=== PATIENT | male | born 1950 | race Caucasian/White ===

== ENCOUNTER 2019-06-15 11:00 | Day surgery (SDC) | payer OTHER ==
[~2019-06-15 11:00] MED LIST: PROPOFOL INJ 200 MG/20 ML VIAL IV ONE
[2019-06-15] MEDS ORDERED: PROPOFOL INJ 200 MG/20 ML VIAL IV ONE (12:03)
--- NOTE | 2019-06-15 12:56 | Operative Report ---
Operative Report DATE OF SURGERY: 06/15/19 Operative Report: The risk, benefits and alternatives of the procedure including the risk of bleeding, perforation requiring surgery have been explained to the patient in detail and informed consent has been obtained. Patient is placed in a left, lateral decubital position. Timeout was called. Propofol medication is administered. Rectal examination is done which did not reveal any masses, tears or fissures. An Olympus videoscope was introduced into the patient's rectum. The scope was then carefully advanced all the way to the cecum. The cecum was identified by the usual anatomical landmarks including the ileocecal valve as well as the appendiceal office. Photodocumentation is obtained. Scope was then sequentially pulled back via the various segments of the colon including the ascending colon, hepatic flexure, transverse colon, splenic flexure, descending colon finding to the rectosigmoid portions of the colon. Retroflexion maneuvers performed. The risks benefits and alternatives of the procedure explained to the patient in detail and informed consent is obtained.A GIF Olympus video scope was inserted into the patient's mouth and hypopharynx, the esophagus is identified intubated and insufflated ,the scope was then advanced through the esophagus stomach and duodenum, retroflexion maneuver is done, the esophagus stomach and first and second portions of the duodenum examined PREOPERATIVE DIAGNOSIS: GI bleeding rule out source POSTOPERATIVE DIAGNOSIS: Mild right side colon inflammation status post biopsy. Internal hemorrhoids. Esophageal ulcer not actively bleeding. 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 Hiatal hernia. Gastric pouch inflammation status post biopsy. And anastomotic ulcer OPERATION: Colonoscopy with biopsy. EGD with biopsy SURGEON: ADAM BREWSTER ANESTHESIA: LMAC TISSUE REMOVED OR ALTERED: As noted above. COMPLICATIONS: None. ESTIMATED BLOOD LOSS: None. INTRAOPERATIVE FINDINGS: As noted above. PROCEDURE: Patient tolerated the procedure well. No immediate postprocedure complications are noted. Patient is discharged in good condition. Discharge date 06/15/2019. Discharge diet: Regular. Discharge activity: Regular. 2 to 3-week follow-up to discuss findings. Patient is instructed to call the office or proceed to the emergency room should there be any further problems or questions. Wait on the pathology.
[2019-06-15 13:02] VITALS: BP 145/66
== END 2019-06-15 13:00 | disposition home or self-care (01) ==
LOC: END 11:00
PROVIDERS: ATTEND Internal Medicine Gastroenterology
DX: D50.9 Iron deficiency anemia, unspecified (principal); K52.9 Noninfective gastroenteritis and colitis, unspecified; K64.8 Other hemorrhoids; K44.9 Diaphragmatic hernia without obstruction or gangrene; K29.50 Unspecified chronic gastritis without bleeding; K22.10 Ulcer of esophagus without bleeding; K28.9 Gastrojejunal ulcer, unspecified as acute or chronic, without hemorrhage or perforation; Z86.010 Personal history of colon polyps; Z87.891 Personal history of nicotine dependence
CPT/HCPCS: 43239; 45380; 82962; 88342 ×2; 88305 ×2; J2704; 813

== ENCOUNTER 2019-08-06 08:07 | Day surgery (SDC) | payer OTHER ==
[2019-08-06 10:39] VITALS: BP 144/71
--- NOTE | 2019-08-06 12:09 | Operative Report ---
Operative Report DATE OF SURGERY: 08/06/19 Operative Report: The risks benefits and alternatives of the procedure explained to the patient in detail and informed consent is obtained.A GIF Olympus video scope was inserted into the patient's mouth and hypopharynx ,the esophagus is identified intubated and insufflated, the scope was then advanced through the esophagus stomach and duodenum ,retroflexion maneuver is done the esophagus stomach and first and second portions of the duodenum examined PREOPERATIVE DIAGNOSIS: Corrales's esophagus POSTOPERATIVE DIAGNOSIS: Corrales's esophagus status post radiofrequency ablation OPERATION: EGD with radiofrequency ablation SURGEON: ADAM BREWSTER ANESTHESIA: LMAC TISSUE REMOVED OR ALTERED: None. COMPLICATIONS: None. ESTIMATED BLOOD LOSS: As noted above. INTRAOPERATIVE FINDINGS: As noted above. PROCEDURE: Patient tolerated the procedure well. No immediate postprocedure complications are noted. Patient is discharged in good condition. Discharge date 08/06/2019. Discharge diet: Regular. Discharge activity: Regular. 2 to 3-week follow-up to discuss findings. Patient is instructed call the office or proceed to the emergency room should there be any further problems or questions.
== END 2019-08-06 10:37 | disposition home or self-care (01) ==
LOC: END 08:07
PROVIDERS: ATTEND Internal Medicine Gastroenterology
DX: K22.719 Barrett's esophagus with dysplasia, unspecified (principal); Z87.891 Personal history of nicotine dependence; Z88.5 Allergy status to narcotic agent; I10 Essential (primary) hypertension; E11.9 Type 2 diabetes mellitus without complications; E66.9 Obesity, unspecified; Z85.828 Personal history of other malignant neoplasm of skin
CPT/HCPCS: 43270; 82962; 00731; J2704; 731

== ENCOUNTER 2019-12-15 04:25 | Inpatient (IN) | payer OTHER, MEDICARE ==
--- NOTE | 2019-12-15 05:38 | RADIOLOGY REPORT (SQ) ---
EXAM DESCRIPTION: XR CHEST 1 VIEW COMPLETED DATE/TME: 12/15/2019 04:55 CLINICAL HISTORY: 69 years, Male, epigastric pain COMPARISON: None. NUMBER OF VIEWS: 1 TECHNIQUE: Portable chest LIMITATIONS: None. FINDINGS: Cardiomegaly. Osteopenia. Multiple old rib fractures bilaterally. Lungs are clear. No pneumothorax. Postsurgical change of the cervical spine IMPRESSION: No acute cardiopulmonary process copyright 2010 [employer]- All Rights Reserved
[2019-12-15] MEDS ORDERED: MORPHINE SULFATE 10 MG/ML INJ IV ONE (06:25)
[2019-12-15] MEDS ORDERED: ONDANSETRON HCL INJ/PF 4 MG/2 ML SDV IV ONE (06:25)
[2019-12-15 06:35] LABS: ABSOLUTE EOSINOPHILS # (AUTO) 0.2 10^3/uL (0.0-0.6); ABSOLUTE LYMPHOCYTES (AUTO) 1.3 10^3/uL (0.5-4.7); ABSOLUTE MONOCYTES (AUTO) 0.5 10^3/uL (0.1-1.4); TOTAL CELLS COUNTED % (AUTO) 100 %
[2019-12-15 06:43] LABS: APPEARANCE,URINE CLEAR; BILIRUBIN,URINE NEGATIVE (NEGATIVE); COLOR,URINE STRAW; GLUCOSE, URINE 50 mg/dL (NEGATIVE); KETONES,URINE NEGATIVE (NEGATIVE); LEUKOCYTE ESTERASE,URINE NEGATIVE (NEGATIVE); NITRITE,URINE NEGATIVE (NEGATIVE); PROTEIN,URINE NEGATIVE (NEGATIVE); URINE SPECIFIC GRAVITY 1.006; UROBILINOGEN,URINE NEGATIVE mg/dL (<2.0)
[2019-12-15 06:44] LABS: ABSOLUTE NEUT (AUTO) 2.1 10^3/uL (1.7-8.2); BASOPHILS % (AUTO) 1.1 % (0-2); EOSINOPHILS % (AUTO) 4.7 % (0-6); HEMATOCRIT 25.4 % (37.9-51.0); HEMOGLOBIN 8.2 g/dL (13.5-17.0); MEAN CORPUSCULAR HEMOGLOBIN 23.8 pg (27.0-33.4); MEAN CORPUSCULAR HGB CONC 32.1 g/dL (32.0-36.0); MEAN CORPUSCULAR VOLUME 74 fl (80-97); PLATELET COUNT 255 10^3/uL (150-450); RED BLOOD COUNT 3.44 10^6/uL (4.35-5.55); RED CELL DISTRIBUTION WIDTH 19.7 % (11.5-14.0); SEGMENTED NEUTROPHILS % (AUTO) 51.2 % (42-78); WHITE BLOOD COUNT 4.1 10^3/uL (4.0-10.5)
[2019-12-15 06:49] LABS: INTERNATIONAL RATION (INR) 0.94; PROTHROMBIN TIME 12.5 SEC (11.4-15.4)
[2019-12-15 06:55] LABS: ALBUMIN 4.3 g/dL (3.5-5.0); ALKALINE PHOSPHATASE 62 U/L (38-126); ANION GAP 7 (5-19); ASPARTATE AMINO TRANSFERASE 58 U/L (17-59); BILIRUBIN,TOTAL 0.4 mg/dL (0.2-1.3); BLOOD UREA NITROGEN 13 mg/dL (7-20); CALCIUM 9.1 mg/dL (8.4-10.2); CARBON DIOXIDE 25 mmol/L (22-30); CHLORIDE 103 mmol/L (98-107); GLUCOSE 177 mg/dL (75-110); POTASSIUM 4.4 mmol/L (3.6-5.0); TOTAL PROTEIN 7.8 g/dL (6.3-8.2)
--- NOTE | 2019-12-15 09:29 | RADIOLOGY REPORT (SQ) ---
EXAM DESCRIPTION: CT ABD/PELVIS WITH IV ORAL IMAGES COMPLETED DATE/TIME: 12/15/2019 9:14 am REASON FOR STUDY: hx bypass, upper abd pain COMPARISON: None. TECHNIQUE: CT scan of the abdomen and pelvis performed using helical scanning technique with dynamic intravenous contrast injection. No oral contrast. Images reviewed with lung, soft tissue, and bone windows. Reconstructed coronal and sagittal MPR images reviewed. Delayed images for evaluation of the urinary system also acquired. All images stored on PACS. All CT scanners at this facility use dose modulation, iterative reconstruction, and/or weight based d osing when appropriate to reduce radiation dose to as low as reasonably achievable (ALARA). [facility]: Dose Right [facility]: CareDose [facility]: Dose Right [facility]: Teradose 4D [facility]: App Press CONTRAST TYPE AND DOSE: contrast/concentration: Isovue 350.00 mmol/ml; Total Contrast Delivered: 100 .0 ml; Total Saline Delivered: 61.1 ml RENAL FUNCTION: BUN 13 creatinine 1.26. RADIATION DOSE: CT Rad equipment meets quality standard of care and radiation dose reduction techniq ues were employed. CTDIvol: 17.9 - 20.4 mGy. DLP: 2346 mGy-cm.. LIMITATIONS: None. FINDINGS: LOWER CHEST: No significant findings. No nodules or infiltrates. LIVER: Normal size. 2.7 cm circumscribed low-attenuation lesion in the left lobe (axial series 3 and 5, image 14). Small subcentimeter low-attenuation lesion in the right lobe (axial series 3 and 5, i mage 21) possibly a cyst. No dilated ducts. SPLEEN: Normal size. No focal lesions. PANCREAS: No masses. No significant calcifications. No adjacent inflammation or peripancreatic fluid collections. Pancreatic duct not dilated. GALLBLADDER: Small gallstones. No inflammatory changes to suggest cholecystitis. ADRENAL GLANDS: No significant masses or asymmetry. RIGHT KIDNEY AND URETER: No solid masses. No significant calcifications. No hydronephrosis or hyd roureter. LEFT KIDNEY AND URETER: No solid masses. No significant calcifications. No hydronephrosis or hydr oureter. AORTA AND VESSELS: No aneurysm. No dissection. Renal arteries, SMA, celiac without stenosis. RETROPERITONEUM: No retroperitoneal adenopathy, hemorrhage or masses. BOWEL AND PERITONEAL CAVITY: Previous gastric surgery. No masses or inflammatory changes. No free fl uid or peritoneal masses. APPENDIX: Surgically absent. PELVIS: No mass. No free fluid. Normal bladder. ABDOMINAL WALL: No masses. No hernias. BONES: No significant or acute findings. OTHER: No other significant finding. IMPRESSION: 1. SMALL GALLSTONES. 2. CIRCUMSCRIBED LOW-ATTENUATION LESION IN THE LEFT LOBE OF THE LIVER. IF THE PATIENT HAS HAD PRIOR IMAGING ELSEWHERE, THEN COMPARISON WOULD BE HELPFUL TO DETERMINE IF THIS IS A STABLE FINDING. OTHERW ISE, MAY NEED OUTPATIENT MRI OF THE LIVER. 3. PREVIOUS GASTRIC BYPASS. 4. NO OTHER SIGNIFICANT OR ACUTE FINDING IN THE ABDOMEN OR PELVIS ON CT SCAN WITH IV CONTRAST. TECHNICAL DOCUMENTATION: JOB ID: [id number] Quality ID # [id number]: Final reports with documentation of one or more dose reduction techniques (e.g., Au tomated exposure control, adjustment of the mA and/or kV according to patient size, use of iterative reconstruction technique) 2010 [employer]- All Rights Reserved Reading location - IP/workstation name: [email or web address]
--- NOTE | 2019-12-15 09:38 | EKG REPORT ---
SEVERITY:- OTHERWISE NORMAL ECG - SINUS RHYTHM LEFT AXIS DEVIATION : Confirmed by: Alesha Weston 15-Dec-2019 09:37:47
--- NOTE | 2019-12-15 10:13 | ER Document Report ---
ED Cardiac - General Chief Complaint: Epigastric Pain Stated Complaint: ABDOMINAL PAIN Time Seen by Provider: 12/15/19 06:11 Primary Care Provider: JASVIR VILLARREAL DO [Primary Care Provider] - Follow up as needed Mode of Arrival: Medic Information source: Patient TRAVEL OUTSIDE OF THE [place] IN LAST 30 DAYS: No - HPI Notes: Patient comes in this morning complaining of epigastric pain. He states that he ate some butter beans approximate 3 AM and then developed severe epigastric pain. He states it is improved by the time he arrived here in the emergency department but he is unsure what has made it better. This pain has been co nstant. It is not radiating. It has been sharp. He states it feels similar to when he is had problems with his bypass in the past. He did have gastric bypass surgery in 2006 with a history of perforation. He states he has had no type of cardiac evaluation since 2004. At that time he did have a normal stress test he states. He states he has chronic anemia and is followed by Dr. Friedman. He st ates currently Dr. Lopes is trying to arrange for a repeat colonoscopy. He states he also had to have a recent transfusion for his anemia. Patient denies shortness of breath, significant nausea and he also denies sweating. - Related Data Allergies/Adverse Reactions: codeine Adverse Reaction (Intermediate, Verified 08/04/19 13:20) Nausea Past Medical History - General Information source: Patient - Social History Smoking Status: Former Smoker Frequency of alcohol use: None Drug Abuse: None Family History: Reviewed & Not Pertinent Patient has homicidal ideation: No - Past Medical History Cardiac Medical History: Reports: Hx Hypertension Denies: Hx Coronary Artery Disease, Hx Heart Attack Pulmonary Medical History: Reports: Hx Pneumonia Denies: Hx Asthma, Hx Bronchitis, Hx COPD Neurological Medical History: Denies: Hx Cerebrovascular Accident, Hx Seizures Endocrine Medical History: Reports: Hx Diabetes Mellitus Type 2 GI Medical History: Reports: Hx Gastroesophageal Reflux Disease Musculoskeletal Medical History: Reports Hx Arthritis Past Surgical History: Reports: Hx Orthopedic Surgery - neck, back, right leg - Immunizations Hx Diphtheria, Pertussis, Tetanus Vaccination: Yes Hx Pneumococcal Vaccination: 05/27/18 Review of Systems - Review of Systems Constitutional: denies: Chills, Fever Cardiovascular: Chest pain. denies: Palpitations Respiratory: denies: Cough, Short of breath -: Yes All other systems reviewed and negative Physical Exam - Vital signs Vitals: Temp Pulse Resp BP Pulse Ox 98.5 F 88 16 166/81 H 97 12/15/19 04:32 12/15/19 04:32 12/15/19 04:32 12/15/19 04:32 12/15/19 04:32 Interpretation: Normal - General General appearance: Appears well, Alert - HEENT Head: Normocephalic, Atraumatic Eyes: Normal Pupils: PERRL - Respiratory Respiratory status: No respiratory distress Chest status: Nontender Breath sounds: Normal Chest palpation: Normal - Cardiovascular Rhythm: Regular Heart sounds: Normal auscultation Murmur: No - Abdominal Inspection: Normal Distension: Distended Bowel sounds: Normal Tenderness: Tender - Mild epigastric tenderness to palpation. Organomegaly: No organomegaly - Back Back: Normal, Nontender - Extremities General upper extremity: Normal inspection, Nontender, Normal color, Normal ROM, Normal temperature General lower extremity: Normal inspection, Nontender, Normal color, Normal ROM, Normal temperature, Normal weight bearing. No: Ernesto's sign - Neurological Neuro grossly intact: Yes Cognition: Normal Orientation: AAOx4 Susana Coma Scale Eye Opening: Spontaneous [place] Coma Scale Verbal: Oriented [place] Coma Scale Motor: Obeys Commands [place] Coma Scale Total: 15 Speech: Normal Motor strength normal: LUE, RUE, LLE, RLE Sensory: Normal - Psychological Associated symptoms: Normal affect, Normal mood - Skin Skin Temperature: Warm Skin Moisture: Dry Skin Color: Normal Course - Re-evaluation Re-evalutation: 12/15/19 10:10 Patient presents with epigastric pain that is lower chest upper abdominal in nature. It does not appear to be secondary to any GI pathology that I can ascertain at this time. Patient does have significant risk factors for cardiac disease and has no recent evaluation. It seems prudent to have patient further evaluated for coronary artery disease, therefore hospitalist has been contacted for an admission. Patient also has anemia however this is chronic. Patient's first troponin was mildly elevated. There are no signs of ischemia on his EKG. A second troponin is pending. Aspirin was held for now as pt has hx of anemia with chronic lower GI bleeding. 12/15/19 10:11 12/15/19 10:11 - Vital Signs Vital signs: Temp Pulse Resp BP Pulse Ox 98.5 F 88 14 165/87 H 97 12/15/19 04:32 12/15/19 04:32 12/15/19 08:01 12/15/19 08:01 12/15/19 08:01 - Laboratory Result Diagrams: 12/15/19 06:10 12/15/19 06:10 Laboratory results interpreted by me: 12/15/19 12/15/19 12/15/19 06:10 06:10 06:10 RBC 3.44 L Hgb 8.2 L Hct 25.4 L MCV 74 L MCH 23.8 L RDW 19.7 H Sodium 134.9 L Creatinine 1.26 H Est GFR (MDRD) Non-Af 57 L Glucose 177 H POC Glucose Urine Glucose (UA) 50 H 12/15/19 06:14 RBC Hgb Hct MCV MCH RDW Sodium Creatinine Est GFR (MDRD) Non-Af Glucose POC Glucose 183 H Urine Glucose (UA) - Diagnostic Test Radiology reviewed: Image reviewed, Reports reviewed Discharge - Discharge Clinical Impression: Chest pain Qualifiers: Chest pain type: unspecified Qualified Code(s): R07.9 - Chest pain, unspecified Anemia Qualifiers: Anemia type: iron deficiency Iron deficiency anemia type: chronic blood loss Qualified Code(s): D50.0 - Iron deficiency anemia secondary to blood loss (chronic) Condition: Serious Disposition: ADMITTED INPATIENT Admitting Provider: Iavn (Hospitalist) Krystyna Willingham to admit Unit Admitted: Telemetry Referrals: VILLARREAL,DO JASVIR [Primary Care Provider] - Follow up as needed
[2019-12-15] MEDS ORDERED: DEXTROSE 50%-WATER 25 GM/50 ML DISP.SYRIN IV PRN ×4 (11:30→11:49)
[2019-12-15] MEDS ORDERED: ALBUTEROL SULFATE 0.083% NEB 2.5 MG/3 ML AMPUL NEB PRN (11:30)
[2019-12-15] MEDS ORDERED: ACETAMINOPHEN 325 MG TABLET PO PRN (11:30)
[2019-12-15] MEDS ORDERED: GLUCAGON,HUMAN RECOMB 1 MG INJ SUBCUT PRN (11:30)
[2019-12-15] MEDS ORDERED: DEXTROSE 40% GEL 15 GM TUBE PO PRN ×4 (11:30→11:49)
[2019-12-15] MEDS ORDERED: ONDANSETRON HCL INJ/PF 4 MG/2 ML SDV IV PRN (11:36)
[2019-12-15] MEDS ORDERED: PROMETHAZINE HCL INJ 25 MG/1 ML VIAL IV PRN (11:36)
[2019-12-15] MEDS ORDERED: MAG HYDROX/AL HYDROX/SIMETH SUSP 30 ML UDCUP PO PRN (11:36)
[2019-12-15] MEDS ORDERED: HYDRALAZINE HCL INJ/PF 20 MG/1 ML SDV IV PRN (11:48)
[2019-12-15] MEDS ORDERED: GLUCAGON,HUMAN RECOMB 1 MG INJ IM PRN (11:49)
[2019-12-15] MEDS ORDERED: FUROSEMIDE INJ/PF 20 MG/2 ML SDV IV ONE (11:54)
--- NOTE | 2019-12-15 12:15 | PDOC H&P ---
History of Present Illness Admission Date/PCP: 12/15/19 10:22 JASVIR VILLARREAL DO Patient complains of: Atypical chest pain History of Present Illness: CHUCHO SOMMERS is a 69 year old male with a past medical history significant for Hypertension, hyperlipidemia, insulin-dependent diabetes mellitus, CKD 3, peripheral neuropathy, GERD, obesity, and gastric bypass who presented to the emergency department today with a complaint of sudden onset chest discomfort when swallowing. He states that the pain is epigastric, nonradiating, severe, associated with eating/swallowing, not exacerbated by activity or relieved by rest. He reports similar chest discomfort previously related to gastric bypass complication resulting in gastric leak. He reports that his primary care provider has initiated the referral process to Dr. Lopes who he has seen previously. Evaluation in the emergency department revealed Mild tachycardia (HR 90-105), hypertension, anemia (hemoglobin 8.2), normal PT/INR, CKD 3 (CR 1.26/BUN 13), indeterminately elevated troponin of 0.035 that is trending down, and negative urinalysis. EKG revealed sinus rhythm. Chest x-ray is benign. Abdominal CT with oral contrast revealed gallstones, incidental liver lesion (2.7 circumscribed low-attenuation lesion to the left lobe). No other acute findings. Patient is referred to the hospital service for further evaluation and management of the above-stated complaints and findings. Past Medical History Cardiac Medical History: Reports: Hyperlipidema, Hypertension Denies: Congestive Heart Failure, Coronary Artery Disease, Myocardial Infarction Pulmonary Medical History: Reports: Pneumonia Denies: Asthma, Bronchitis, Chronic Obstructive Pulmonary Disease (COPD) EENT Medical History: Reports: None Neurological Medical History: Denies: Ischemic CVA, Seizures Endocrine Medical History: Reports: Diabetes Mellitus Type 2 - Insulin- dependent, Obesity Renal/ Medical History: Reports: Chronic Kidney Disease Malignancy Medical History: Reports: Skin Cancer GI Medical History: Reports: Gastroesophageal Reflux Disease Musculoskeltal Medical History: Reports: Arthritis Skin Medical History: Reports: None Psychiatric Medical History: Reports: Depression Traumatic Medical History: Reports: None Hematology: Reports: Anemia Infectious Medical History: Reports: None Past Surgical History Past Surgical History: Reports: Appendectomy, Gastric Bypass Surgery, Orthopedic Surgery - neck, back, right leg Social History Information Source: Patient Lives with: Alone Smoking Status: Former Smoker Electronic Cigarette use?: No Frequency of Alcohol Use: None Hx Recreational Drug Use: No - Advance Directive Resuscitation Status: Full Code Family History Family History: Reviewed & Not Pertinent Parental Family History Reviewed: Yes Children Family History Reviewed: Yes Sibling(s) Family History Reviewed.: Yes Medication/Allergy Home Medications: Gabapentin 800 mg PO TID 06/12/19 Insulin Glargine,Hum.rec.anlog [Lantus Insulin 100 Unit/1 ml 10 ml] 27 unit SUBCUT DAILY 06/12/19 Omeprazole 20 mg PO DAILY 06/12/19 Simvastatin 40 mg PO DAILY 06/12/19 Venlafaxine HCl [Effexor 75 mg Tablet] 3 tab PO DAILY 06/12/19 Allergies/Adverse Reactions: codeine Adverse Reaction (Intermediate, Verified 08/04/19 13:20) Nausea Review of Systems Constitutional: ABSENT: chills, fever(s), headache(s), weight gain, weight loss Eyes: ABSENT: visual disturbances Ears: ABSENT: hearing changes Cardiovascular: PRESENT: chest pain. ABSENT: dyspnea on exertion, edema, orthropnea, palpitations Respiratory: ABSENT: cough, hemoptysis Gastrointestinal: PRESENT: abdominal pain. ABSENT: constipation, diarrhea, hematemesis, hematochezia, nausea, vomiting Genitourinary: ABSENT: dysuria, hematuria Musculoskeletal: ABSENT: joint swelling Integumentary: ABSENT: rash, wounds Neurological: ABSENT: abnormal gait, abnormal speech, confusion, dizziness, foca l weakness, syncope Psychiatric: ABSENT: anxiety, depression, homidical ideation, suicidal ideation Endocrine: ABSENT: cold intolerance, heat intolerance, polydipsia, polyuria Hematologic/Lymphatic: ABSENT: easy bleeding, easy bruising Physical Exam Vital Signs: Temp Pulse Resp BP Pulse Ox 98.5 F 88 18 177/92 H 100 12/15/19 04:32 12/15/19 04:32 12/15/19 10:04 12/15/19 10:04 12/15/19 10:04 Intake & Output 12/14/19 12/15/19 12/16/19 06:59 06:59 06:59 Weight 115.3 kg General appearance: PRESENT: no acute distress, cooperative, obese, well- developed, well-nourished Head exam: PRESENT: atraumatic, normocephalic Eye exam: PRESENT: conjunctiva pink, EOMI, PERRLA. ABSENT: scleral icterus Mouth exam: PRESENT: moist, tongue midline Neck exam: ABSENT: carotid bruit, JVD, lymphadenopathy, thyromegaly Respiratory exam: PRESENT: clear to auscultation joann, symmetrical, unlabored. ABSENT: rales, rhonchi, wheezes Cardiovascular exam: PRESENT: RRR, +S1, +S2. ABSENT: diastolic murmur, rubs, systolic murmur Pulses: PRESENT: normal dorsalis pedis pul Vascular exam: PRESENT: normal capillary refill GI/Abdominal exam: PRESENT: normal bowel sounds, soft. ABSENT: distended, guarding, mass, organolmegaly, rebound, tenderness Rectal exam: PRESENT: deferred Extremities exam: PRESENT: full ROM, +1 edema - non pitting BLE; L>R. ABSENT: calf tenderness, clubbing Neurological exam: PRESENT: alert, awake, oriented to person, oriented to place, oriented to time, oriented to situation, CN II-XII grossly intact. ABSENT: motor sensory deficit Psychiatric exam: PRESENT: appropriate affect, normal mood. ABSENT: homicidal ideation, suicidal ideation Skin exam: PRESENT: dry, intact, warm. ABSENT: cyanosis, rash Results Laboratory Results: 12/15/19 06:10 12/15/19 06:10 12/15/19 12/15/19 12/15/19 06:10 06:10 06:10 WBC 4.1 RBC 3.44 L Hgb 8.2 L Hct 25.4 L MCV 74 L MCH 23.8 L MCHC 32.1 RDW 19.7 H Plt Count 255 Seg Neutrophils % 51.2 Sodium 134.9 L Potassium 4.4 Chloride 103 Carbon Dioxide 25 Anion Gap 7 BUN 13 Creatinine 1.26 H Est GFR ( Amer) > 60 Glucose 177 H Calcium 9.1 Total Bilirubin 0.4 AST 58 Alkaline Phosphatase 62 Total Protein 7.8 Albumin 4.3 Urine Color STRAW Urine Appearance CLEAR Urine pH 6.0 Ur Specific [place] 1.006 Urine Protein NEGATIVE Urine Glucose (UA) 50 H Urine Ketones NEGATIVE Urine Blood NEGATIVE Urine Nitrite NEGATIVE Ur Leukocyte Esterase NEGATIVE Urine WBC (Auto) 0 Urine RBC (Auto) 0 12/15/19 12/15/19 06:10 09:45 Troponin I 0.035 0.025 Impressions: Abdomen/Pelvis CT 12/15/19 00:00 IMPRESSION: 1. SMALL GALLSTONES. 2. CIRCUMSCRIBED LOW-ATTENUATION LESION IN THE LEFT LOBE OF THE LIVER. IF THE PATIENT HAS HAD PRIOR IMAGING ELSEWHERE, THEN COMPARISON WOULD BE HELPFUL TO DETERMINE IF THIS IS A STABLE FINDING. OTHERWISE, MAY NEED OUTPATIENT MRI OF THE LIVER. 3. PREVIOUS GASTRIC BYPASS. 4. NO OTHER SIGNIFICANT OR ACUTE FINDING IN THE ABDOMEN OR PELVIS ON CT SCAN WITH IV CONTRAST. Chest X-Ray 12/15/19 04:55 IMPRESSION: No acute cardiopulmonary process copyright 2011 [employer]- All Rights Reserved Assessment and Plan - Diagnosis (1) Atypical chest pain Is this a current diagnosis for this admission?: Yes Plan: Patient is admitted to medical floor on continuous cardiac telemetry. Cardiogram and EKG are reassuring. We will continue to trend troponins; 0.035-> 0.025 Daily aspirin and statin therapy. Echocardiogram pending. Inpatient vs outpatient cardiology follow-up. Dr. Lopes is consulted; plans for EGD tomorrow. Patient reports that his chest discomfort is similar to previous complication related to his gastric bypass. Further risk stratification with A1c, TSH, lipid panel. (2) Diabetes Qualifiers: Diabetes mellitus type: type 2 Diabetes mellitus watermelon harvesting supervisor insulin use: with watermelon harvesting supervisor use Is this a current diagnosis for this admission?: Yes Plan: We will check A1c with a.m. lab work. Accu-Cheks before meals and at bedtime with Humalog for sliding scale coverage. Hypoglycemia protocol in place. (3) Hypertension Qualifiers: Hypertension type: essential hypertension Qualified Code(s): I10 - Essential (primary) hypertension Is this a current diagnosis for this admission?: Yes Plan: Not currently on antihypertensive therapy. Start amlodipine. IV hydralazine as needed for blood pressure control. Echocardiogram pending. (4) Hyperlipidemia Is this a current diagnosis for this admission?: Yes Plan: Daily statin therapy. (5) CKD (chronic kidney disease) stage 3, GFR 30-59 ml/min Is this a current diagnosis for this admission?: Yes Plan: At baseline. Avoid nephrotoxic medications as able. Follow-up chemistries. (6) Anemia Qualifiers: Anemia type: iron deficiency Iron deficiency anemia type: chronic blood loss Qualified Code(s): D50.0 - Iron deficiency anemia secondary to blood loss (chronic) Is this a current diagnosis for this admission?: Yes Plan: Anemia panel with AM lab work. Occult stool pending. GI consulted; plans for EGD. Follow CBC (7) Edema Qualifiers: Edema type: localized Qualified Code(s): R60.0 - Localized edema Is this a current diagnosis for this admission?: Yes Plan: Peripheral edema; +1, nonpitting, BLE IV furosemide x1 Echocardiogram pending. Per patient, Doppler ruled out DVT on the Left yesterday (seen at PCP's office for same) - Time Time Spent with patient: 35 or more minutes Medications reviewed and adjusted accordingly: Yes Anticipated discharge: Home Within: Other
[2019-12-15] MEDS: HEPARIN SOD (PORCINE) 5,000 UNIT/ML 1 ML VIAL SUBCUT SCH ×2 (14:50→21:39)
[2019-12-15] MEDS: INSULIN LISPRO 100 UNIT/ML 3 ML VIAL SUBCUT SCH ×2 (16:40→21:50)
--- NOTE | 2019-12-15 17:57 | PDOC CONSULTATION ---
Consultation Consult Date: 12/15/19 Provider Consulted: ADAM BREWSTER Consult reason:: Epigastric pain History of Present Illness Admission Date/PCP: I have received consult on this patient, being admitted to the Hospitalist service has been having epigastric pain has had possible gastric surgery in the past patient currently rule out for cardiac chest pain if negative, can have EGD done he will need rapid Covid 19 testing denies any melena however does have anemia could be due to lack of iron absorption patient tentatively on schedule if Covid 19 is negative and ruled for for true cardiac event spoke with hospitalist History of Present Illness: CHUCHO SOMMERS is a 69 year old male Past Medical History Cardiac Medical History: Reports: Hyperlipidema, Hypertension Denies: Congestive Heart Failure, Coronary Artery Disease, Myocardial Infarction Pulmonary Medical History: Reports: Pneumonia Denies: Asthma, Bronchitis, Chronic Obstructive Pulmonary Disease (COPD) EENT Medical History: Reports: None Neurological Medical History: Denies: Ischemic CVA, Seizures Endocrine Medical History: Reports: Diabetes Mellitus Type 2 - Insulin- dependent, Obesity Renal/ Medical History: Reports: Chronic Kidney Disease Malignancy Medical History: Reports: Skin Cancer GI Medical History: Reports: Gastroesophageal Reflux Disease Musculoskeltal Medical History: Reports: Arthritis Skin Medical History: Reports: None Psychiatric Medical History: Reports: Depression Traumatic Medical History: Reports: None Hematology: Reports: Anemia Infectious Medical History: Reports: None Past Surgical History Past Surgical History: Reports: Appendectomy, Gastric Bypass Surgery, Orthopedic Surgery - neck, back, right leg Social History Lives with: Alone Smoking Status: Former Smoker Electronic Cigarette use?: No Frequency of Alcohol Use: None Hx Recreational Drug Use: No Drugs: None - Advance Directive Resuscitation Status: Full Code Family History Family History: Reviewed & Not Pertinent Parental Family History Reviewed: Yes Children Family History Reviewed: Unknown Sibling(s) Family History Reviewed.: Unknown Medication/Allergy Home Medications: Insulin Glargine,Hum.rec.anlog [Lantus Insulin 100 Unit/1 ml 10 ml] 30 unit SUBCUT QHS 06/12/19 Simvastatin 40 mg PO QHS 06/12/19 Capsaicin [Zostrix 0.025% Cream 60 gm] 1 applic TP Q8HP PRN 12/15/19 Cholecalciferol (Vitamin D3) [Vitamin D3 1000 Unit Tablet] 2,000 unit PO DAILY 12/15/19 Gabapentin [Neurontin] 400 mg PO BIDP PRN 12/15/19 Lisinopril/Hydrochlorothiazide [Lisinopril-Hctz 20-25 mg Tab] 1 each PO DAILY 12/15/19 Pantoprazole Sodium [Protonix [address] Tablet] 40 mg PO BID 12/15/19 Allergies/Adverse Reactions: codeine Adverse Reaction (Intermediate, Verified 08/04/19 13:20) Nausea Review of Systems Constitutional: ABSENT: fever(s), headache(s), night sweats, weakness Eyes: ABSENT: visual disturbances Ears: ABSENT: hearing changes Nose, Mouth, and Throat: ABSENT: mouth pain, sore throat Cardiovascular: ABSENT: edema Respiratory: ABSENT: dyspnea, hemoptysis Gastrointestinal: ABSENT: dysphagia, hematemesis, hematochezia Genitourinary: ABSENT: dysuria, hematuria Musculoskeletal: ABSENT: deformity, joint swelling Integumentary: ABSENT: lesions, pruritus Neurological: ABSENT: syncope, tingling, tremor(s), vertigo Endocrine: ABSENT: polydipsia, polyphagia, polyuria Hematologic/Lymphatic: ABSENT: easy bruising Physical Exam Vital Signs: Temp Pulse Resp BP Pulse Ox 97.4 F 98 19 168/80 H 97 12/15/19 14:27 12/15/19 14:34 12/15/19 14:27 12/15/19 14:27 12/15/19 14:27 Intake & Output 12/14/19 12/15/19 12/16/19 06:59 06:59 06:59 Weight 108.5 kg General appearance: PRESENT: no acute distress Head exam: PRESENT: atraumatic, normocephalic Eye exam: PRESENT: EOMI, PERRLA. ABSENT: nystagmus, periorbital swelling, scleral icterus Mouth exam: PRESENT: moist, neck supple Neck exam: ABSENT: meningismus, tenderness, thyromegaly Respiratory exam: PRESENT: symmetrical, unlabored. ABSENT: tachypnea, wheezes Cardiovascular exam: PRESENT: RRR, +S1, +S2 GI/Abdominal exam: PRESENT: normal bowel sounds. ABSENT: Yee's sign, rebound, rigid Extremities exam: ABSENT: joint swelling Musculoskeletal exam: PRESENT: full ROM Skin exam: PRESENT: normal color, pallor. ABSENT: petechiae Results Laboratory Results: 12/15/19 06:10 12/15/19 06:10 12/15/19 12/15/19 12/15/19 06:10 06:10 06:10 WBC 4.1 RBC 3.44 L Hgb 8.2 L Hct 25.4 L MCV 74 L MCH 23.8 L MCHC 32.1 RDW 19.7 H Plt Count 255 Seg Neutrophils % 51.2 Sodium 134.9 L Potassium 4.4 Chloride 103 Carbon Dioxide 25 Anion Gap 7 BUN 13 Creatinine 1.26 H Est GFR ( Amer) > 60 Glucose 177 H Calcium 9.1 Total Bilirubin 0.4 AST 58 Alkaline Phosphatase 62 Total Protein 7.8 Albumin 4.3 Lipase Urine Color STRAW Urine Appearance CLEAR Urine pH 6.0 Ur Specific [place] 1.006 Urine Protein NEGATIVE Urine Glucose (UA) 50 H Urine Ketones NEGATIVE Urine Blood NEGATIVE Urine Nitrite NEGATIVE Ur Leukocyte Esterase NEGATIVE Urine WBC (Auto) 0 Urine RBC (Auto) 0 12/15/19 06:10 WBC RBC Hgb Hct MCV MCH MCHC RDW Plt Count Seg Neutrophils % Sodium Potassium Chloride Carbon Dioxide Anion Gap BUN Creatinine Est GFR ( Amer) Glucose Calcium Total Bilirubin AST Alkaline Phosphatase Total Protein Albumin Lipase 466.7 H Urine Color Urine Appearance Urine pH Ur Specific [place] Urine Protein Urine Glucose (UA) Urine Ketones Urine Blood Urine Nitrite Ur Leukocyte Esterase Urine WBC (Auto) Urine RBC (Auto) 12/15/19 12/15/19 12/15/19 06:10 06:10 09:45 Troponin I 0.035 0.025 NT-Pro-B Natriuret Pep 513 H 12/15/19 12:47 Troponin I 0.021 NT-Pro-B Natriuret Pep Impressions: Abdomen/Pelvis CT 12/15/19 00:00 IMPRESSION: 1. SMALL GALLSTONES. 2. CIRCUMSCRIBED LOW-ATTENUATION LESION IN THE LEFT LOBE OF THE LIVER. IF THE PATIENT HAS HAD PRIOR IMAGING ELSEWHERE, THEN COMPARISON WOULD BE HELPFUL TO DETERMINE IF THIS IS A STABLE FINDING. OTHERWISE, MAY NEED OUTPATIENT MRI OF THE LIVER. 3. PREVIOUS GASTRIC BYPASS. 4. NO OTHER SIGNIFICANT OR ACUTE FINDING IN THE ABDOMEN OR PELVIS ON CT SCAN WITH IV CONTRAST. Chest X-Ray 12/15/19 04:55 IMPRESSION: No acute cardiopulmonary process copyright 2011 [employer]- All Rights Reserved Assessment & Plan - Diagnosis (1) Atypical chest pain Is this a current diagnosis for this admission?: Yes Plan: Rule out for GA get Covid 19 testing will schedule EGD for the patient Risks, benefits and alternatives are discussed further recommendations to follow anemia could be due to lack of iron absorption due to bypass surgery follow up H/H may need iron transfusion will rule out PUD - Time Time Spent: 50 to 70 Minutes
[2019-12-15] MEDS: PANTOPRAZOLE SODIUM 40 MG VIAL IV SCH (21:38)
[2019-12-15] MEDS: SIMVASTATIN 40 MG TABLET PO SCH (21:38)
[2019-12-16] MEDS: HEPARIN SOD (PORCINE) 5,000 UNIT/ML 1 ML VIAL SUBCUT SCH ×3 (06:06→21:34)
[2019-12-16 06:45] LABS: ABSOLUTE RETICS # 0.042 10^6/uL (0.028-0.122); HEMATOCRIT 24.9 % (37.9-51.0); MEAN CORPUSCULAR HEMOGLOBIN 23.7 pg (27.0-33.4); MEAN CORPUSCULAR HGB CONC 32.1 g/dL (32.0-36.0); MEAN CORPUSCULAR VOLUME 74 fl (80-97); PLATELET COUNT 237 10^3/uL (150-450); RED BLOOD COUNT 3.38 10^6/uL (4.35-5.55); RETICULOCYTE COUNT (AUTO) 1.25 % (0.66-2.85); WHITE BLOOD COUNT 4.6 10^3/uL (4.0-10.5)
[2019-12-16 07:05] LABS: BLOOD UREA NITROGEN 15 mg/dL (7-20); CALCIUM 8.6 mg/dL (8.4-10.2); CHOLESTEROL 178.27 mg/dL (0-200); GLUCOSE 174 mg/dL (75-110); IRON(TIBC) 23.7 ug/dL (49-181); POTASSIUM 4.1 mmol/L (3.6-5.0); TRIGLYCERIDES 76 mg/dL (<150)
[2019-12-16 07:10] LABS: CARBON DIOXIDE 29 mmol/L (22-30); CHLORIDE 99 mmol/L (98-107)
[2019-12-16 07:16] LABS: DIRECT LDL 46 mg/dL (<100)
[2019-12-16 07:20] LABS: ANION GAP 4 (5-19)
[2019-12-16] MEDS: INSULIN LISPRO 100 UNIT/ML 3 ML VIAL SUBCUT SCH ×5 (07:46→21:34)
[2019-12-16] MEDS: ASPIRIN 81 MG TABLET, CHEWABLE PO SCH (09:01)
[2019-12-16] MEDS: AMLODIPINE BESYLATE 5 MG TABLET PO SCH (09:02)
[2019-12-16] MEDS: DOCUSATE SODIUM 100 MG CAPSULE PO SCH (09:02)
[2019-12-16] MEDS: PANTOPRAZOLE SODIUM 40 MG VIAL IV SCH ×2 (09:04→21:34)
[2019-12-16] MEDS ORDERED: PROPOFOL INJ 200 MG/20 ML VIAL IV ONE (11:44)
--- NOTE | 2019-12-16 12:02 | Operative Report ---
Operative Report DATE OF SURGERY: 12/16/19 Operative Report: The risks benefits and alternatives of the procedure explained to the patient in detail and informed consent is obtained.A GIF Olympus video scope was inserted into the patient's mouth and hypopharynx ,the esophagus is identified intubated and insufflated, the scope was then advanced through the esophagus stomach and duodenum ,retroflexion maneuver is done ,the esophagus stomach and first and second portions of the duodenum examined PREOPERATIVE DIAGNOSIS: Epigastric pain, noncardiac chest pain POSTOPERATIVE DIAGNOSIS: Esophagitis status post biopsy. no anastomotic ulcer. afferent and efferent loop normal. no ulcers in pouch OPERATION: EGD with biopsy SURGEON: ADAM BREWSTER ANESTHESIA: LMAC TISSUE REMOVED OR ALTERED: As noted above. COMPLICATIONS: None. ESTIMATED BLOOD LOSS: None. INTRAOPERATIVE FINDINGS: As noted above. PROCEDURE: Patient tolerated the procedure well. No immediate postprocedure complications are noted. Patient is discharged back to [facility] in good condition. Resume regular diet. Resume previous activity level. Follow-up as outpatient. No obvious bleeding. Anemia likely due to inability of patient to absorb iron due to proximal portion of the duodenum being bypassed. May benefit from IV iron infusion Check vitamin D levels as well
--- NOTE | 2019-12-16 19:53 | XCELERA REPORT ---
[address] [address] Transthoracic Echocardiogram Report Name: CHUCHO SOMMERS Age: 69 yrs Gender: Male : 1950 Patient Status: Inpatient Patient Location: [facility]^A Study Date: 12/16/2019 02:09 PM Height: 69 in Weight: 254 lb BSA: 2.3 m2 Procedure: A complete two-dimensional transthoracic echocardiogram was performed (2D, M-mode, spectral and color flow Doppler). Study Quality: Technically suboptimal. No subcostal views. Reason For Study: ? CHF; edema Ordering Physician: LAUREN GARCÍA Performed By: William Fonseca Interpretation Summary Difficult study for interpretation with multiple suboptimal images secondary to the patient's body habitus. The left ventricle is grossly normal size. Left ventricular systolic function is normal. The Ejection Fraction estimate is 60-65%. Doppler measurements suggest impaired left ventricular relaxation, which is associated with grade I/IV or mild diastolic dysfunction. Regional wall motion abnormalities cannot be excluded due to limited visualization. Trace to mild MR, trace PI. No prior studies for comparison. MMode/2D Measurements & Calculations RVDd: 2.6 cm LVIDd: 5.7 cm FS: 39.8 % Ao root diam: 3.5 cm IVSd: 1.0 cm LVIDs: 3.4 cm EDV(Teich): 158.4 ml Ao root area: 9.5 cm2 LVPWd: 0.96 cm ESV(Teich): 47.9 ml LA dimension: 3.6 cm EF(Teich): 69.8 % Doppler Measurements & Calculations MV E max ky: MV P1/2t max ky: Ao V2 max: LV V1 max P.5 cm/sec 89.0 cm/sec 128.8 cm/sec 2.6 mmHg MV A max ky: MV P1/2t: 59.5 msec Ao max PG: LV V1 max: 126.9 cm/sec MVA(P1/2t): 3.7 cm2 6.6 mmHg 80.5 cm/sec MV E/A: 0.60 MV dec slope: 438.3 cm/sec2 MV dec time: 0.19 sec PA V2 max: MV P1/2t-pr_phl: 94.3 cm/sec 59.5 msec PA max P.6 mmHg Left Ventricle The left ventricle is grossly normal size. Left ventricular systolic function is normal. The Ejection Fraction estimate is 60-65%. Doppler measurements suggest impaired left ventricular relaxation, which is associated with grade I/IV or mild diastolic dysfunction. Regional wall motion abnormalities cannot be excluded due to limited visualization. Right Ventricle The right ventricle is grossly normal size. The right ventricular systolic function is normal. Atria The right atrium is normal. The left atrial size is normal. The interatrial septum is difficult to see, but appears to be grossly normal. Mitral Valve There is mild mitral annular calcification. There is no evidence of mitral valve prolapse. There is no mitral valve stenosis. There is a trace to mild amount of mitral regurgitation. Aortic Valve The aortic valve is grossly normal. There is no aortic valvular vegetation. There is no aortic valve stenosis. No aortic regurgitation is present. Tricuspid Valve The tricuspid valve is not well visualized secondary to technical limitations. Tricuspid valve prolapse cannot be excluded. There is no tricuspid stenosis. There is a trace or physiologic amount of tricuspid regurgitation. Pulmonic Valve The pulmonic valve is not well visualized. There is no vegetation on the pulmonic valve. There is no pulmonic valvular stenosis. There is no pulmonic valvular regurgitation. Great Vessels The inferior vena cava was not visualized. Effusions There is no pericardial effusion. There is no pleural effusion. : LAUREN GARCÍA Antonio
[2019-12-16] MEDS: SIMVASTATIN 40 MG TABLET PO SCH (21:35)
--- NOTE | 2019-12-16 21:58 | PDOC PROGRESS REPORT ---
Subjective Progress Note for:: 12/16/19 Subjective:: Denies chest pain and SOB Reason For Visit: ATYPICAL CHEST PAIN Physical Exam Vital Signs: Temp Pulse Resp BP Pulse Ox 98.1 F 89 18 139/76 H 98 12/16/19 20:00 12/16/19 20:00 12/16/19 20:00 12/16/19 20:00 12/16/19 20:00 Intake & Output 12/15/19 12/16/19 12/17/19 06:59 06:59 06:59 Intake Total 1016 1710 Output Total 1525 800 Balance -509 910 Weight 108 kg 108.2 kg General appearance: PRESENT: no acute distress, obese, well-developed, well- nourished Head exam: PRESENT: atraumatic, normocephalic Eye exam: PRESENT: conjunctiva pink Mouth exam: PRESENT: moist, tongue midline Neck exam: PRESENT: full ROM. ABSENT: JVD Respiratory exam: PRESENT: clear to auscultation joann, symmetrical, unlabored. ABSENT: accessory muscle use Cardiovascular exam: PRESENT: RRR, +S1, +S2 Pulses: PRESENT: normal carotid pulses, normal radial pulses GI/Abdominal exam: PRESENT: normal bowel sounds, soft. ABSENT: distended, guarding, rebound, rigid, tenderness Rectal exam: PRESENT: deferred Extremities exam: PRESENT: full ROM Musculoskeletal exam: PRESENT: full ROM Neurological exam: PRESENT: alert, awake, oriented to person, oriented to place, oriented to time, oriented to situation, CN II-XII grossly intact. ABSENT: motor sensory deficit Psychiatric exam: ABSENT: agitated, anxious Skin exam: PRESENT: dry, warm Results Laboratory Results: 12/16/19 05:57 12/16/19 05:57 12/16/19 12/16/19 12/16/19 05:57 05:57 05:57 WBC 4.6 RBC 3.38 L Hgb 8.0 L Hct 24.9 L MCV 74 L MCH 23.7 L MCHC 32.1 RDW 19.0 H Plt Count 237 Retic Count (auto) 1.25 Sodium 132.1 L Potassium 4.1 Chloride 99 Carbon Dioxide 29 Anion Gap 4 L BUN 15 Creatinine 1.37 H Est GFR ( Amer) > 60 Glucose 174 H Calcium 8.6 Iron 23.7 L TIBC 385 % Saturation 6 Ferritin 13.00 L Triglycerides 76 Cholesterol 178.27 LDL Cholesterol Direct 46 VLDL Cholesterol 15.0 HDL Cholesterol 132 Vitamin B12 299.0 Folate 15.50 TSH 6.80 H 12/15/19 12/15/19 12/15/19 06:10 06:10 09:45 Troponin I 0.035 0.025 NT-Pro-B Natriuret Pep 513 H 12/15/19 12/15/19 12/16/19 12:47 18:45 00:21 Troponin I 0.021 0.032 0.032 NT-Pro-B Natriuret Pep Impressions: Abdomen/Pelvis CT 12/15/19 00:00 IMPRESSION: 1. SMALL GALLSTONES. 2. CIRCUMSCRIBED LOW-ATTENUATION LESION IN THE LEFT LOBE OF THE LIVER. IF THE PATIENT HAS HAD PRIOR IMAGING ELSEWHERE, THEN COMPARISON WOULD BE HELPFUL TO DETERMINE IF THIS IS A STABLE FINDING. OTHERWISE, MAY NEED OUTPATIENT MRI OF THE LIVER. 3. PREVIOUS GASTRIC BYPASS. 4. NO OTHER SIGNIFICANT OR ACUTE FINDING IN THE ABDOMEN OR PELVIS ON CT SCAN WITH IV CONTRAST. Chest X-Ray 12/15/19 04:55 IMPRESSION: No acute cardiopulmonary process copyright 2011 [employer]- All Rights Reserved Assessment and Plan - Diagnosis (1) Atypical chest pain Is this a current diagnosis for this admission?: Yes Plan: Patient chest pain-free Continue ASA 81 mg p.o. daily Echocardiogram completed revealing grossly normal LV function with an LVEF estim ated at 60 to 65%, mild diastolic dysfunction, trace to mild MR, trace PI Peak troponin 0.032 (2) Hypertension Qualifiers: Hypertension type: essential hypertension Qualified Code(s): I10 - Essential (primary) hypertension Is this a current diagnosis for this admission?: Yes Plan: Improved BP control after initiation of antihypertensive therapy Continue amlodipine 5 mg p.o. daily Continue hydralazine 10 mg IV every 6 PRN (3) Dyslipidemia Is this a current diagnosis for this admission?: Yes Plan: Lipid profile reviewed Continue simvastatin 40 mg p.o. 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 daily Monitor CBC (6) Abnormal TSH Is this a current diagnosis for this admission?: Yes Plan: TSH 6.80 Check T3/T4 in a.m. - Time Time Spent with patient: 25-34 minutes Medications reviewed and adjusted accordingly: Yes Anticipated discharge: Home Within: Other
[2019-12-17] MEDS: HEPARIN SOD (PORCINE) 5,000 UNIT/ML 1 ML VIAL SUBCUT SCH ×2 (05:34→13:32)
[2019-12-17 06:38] LABS: ABSOLUTE EOSINOPHILS # (AUTO) 0.1 10^3/uL (0.0-0.6); ABSOLUTE LYMPHOCYTES (AUTO) 1.1 10^3/uL (0.5-4.7); ABSOLUTE MONOCYTES (AUTO) 0.4 10^3/uL (0.1-1.4); ABSOLUTE NEUT (AUTO) 2.9 10^3/uL (1.7-8.2); BASOPHILS % (AUTO) 0.2 % (0-2); EOSINOPHILS % (AUTO) 3.1 % (0-6); HEMATOCRIT 26.2 % (37.9-51.0); HEMOGLOBIN 8.4 g/dL (13.5-17.0); LYMPHOCYTES % (AUTO) 23.9 % (13-45); MEAN CORPUSCULAR HEMOGLOBIN 23.5 pg (27.0-33.4); MEAN CORPUSCULAR HGB CONC 31.9 g/dL (32.0-36.0); MEAN CORPUSCULAR VOLUME 74 fl (80-97); MONOCYTES % (AUTO) 9.4 % (3-13); PLATELET COUNT 247 10^3/uL (150-450); RED BLOOD COUNT 3.55 10^6/uL (4.35-5.55); SEGMENTED NEUTROPHILS % (AUTO) 63.4 % (42-78); TOTAL CELLS COUNTED % (AUTO) 100 %; WHITE BLOOD COUNT 4.5 10^3/uL (4.0-10.5)
[2019-12-17 07:06] LABS: ANION GAP 7 (5-19); BLOOD UREA NITROGEN 13 mg/dL (7-20); CALCIUM 8.6 mg/dL (8.4-10.2); CARBON DIOXIDE 25 mmol/L (22-30); CHLORIDE 101 mmol/L (98-107); GLUCOSE 147 mg/dL (75-110); POTASSIUM 4.4 mmol/L (3.6-5.0)
[2019-12-17 07:14] LABS: FREE T3 3.65 pg/mL (2.77-5.27); FREE T4 (FREE THYROXINE) 1.08 ng/dL (0.78-2.19)
[2019-12-17] MEDS: INSULIN LISPRO 100 UNIT/ML 3 ML VIAL SUBCUT SCH ×3 (07:37→16:52)
[2019-12-17] MEDS: AMLODIPINE BESYLATE 5 MG TABLET PO SCH (09:55)
[2019-12-17] MEDS: PANTOPRAZOLE SODIUM 40 MG VIAL IV SCH (09:55)
[2019-12-17] MEDS: DOCUSATE SODIUM 100 MG CAPSULE PO SCH (09:55)
[2019-12-17] MEDS: ASPIRIN 81 MG TABLET, CHEWABLE PO SCH (09:55)
[2019-12-17] MEDS ORDERED: FERROUS SULFATE 325 MG TABLET PO SCH (10:00)
[2019-12-17 17:45] VITALS: BP 139/76
--- NOTE | 2019-12-17 17:57 | PDOC DISCHARGE SUMMARY ---
Impression - Admit/DC Date/PCP Admission Date/Primary Care Provider: 12/15/19 10:22 JASVIR VILLARREAL DO Discharge Date: 12/17/19 - Discharge Diagnosis (1) Atypical chest pain Is this a current diagnosis for this admission?: Yes (2) Hypertension Is this a current diagnosis for this admission?: Yes (3) Dyslipidemia Is this a current diagnosis for this admission?: Yes (4) CKD (chronic kidney disease) stage 3, GFR 30-59 ml/min Is this a current diagnosis for this admission?: Yes (5) Anemia Is this a current diagnosis for this admission?: Yes (6) Abnormal TSH Is this a current diagnosis for this admission?: Yes - Additional Information Resuscitation Status: Full Code Discharge Diet: As Tolerated Discharge Activity: Activity As Tolerated Referrals: JASVIR VILLARREAL DO [Primary Care Provider] - (We will schedule an appointment for you and contact you with the date and time. Thank you and have a wonderful day.) Prescriptions: Aspirin [Aspirin 81 mg Chewable Tablet] 81 mg PO DAILY #30 tab.chew Ferrous Sulfate [Feosol 325 mg Tablet] 325 mg PO DAILY 30 Days tablet Amlodipine Besylate [Norvasc 5 mg Tablet] 5 mg PO DAILY #30 tablet Home Medications: Simvastatin 40 mg PO QHS 06/12/19 Capsaicin [Zostrix 0.025% Cream 60 gm] 1 applic TP Q8HP PRN 12/15/19 Cholecalciferol (Vitamin D3) [Vitamin D3 1000 Unit Tablet] 2,000 unit PO DAILY 12/15/19 Gabapentin [Neurontin] 400 mg PO BIDP PRN 12/15/19 Pantoprazole Sodium [Protonix [address] Tablet] 40 mg PO BID 12/15/19 Amlodipine Besylate [Norvasc 5 mg Tablet] 5 mg PO DAILY #30 tablet 12/17/19 Aspirin [Aspirin 81 mg Chewable Tablet] 81 mg PO DAILY #30 tab.chew 12/17/19 Ferrous Sulfate [Feosol 325 mg Tablet] 325 mg PO DAILY 30 Days tablet 12/17/19 History of Present Illiness History of Present Illness: CHUCHO SOMMERS is a 69 year old male PMH significant for HTN, dyslipidemia, DM II, CKD, GERD, arthritis, depression, anemia, obesity (s/p gastric bypass) who presented to the ED with complaints of sudden onset chest discomfort when swallowing. The pain was located in the epigastrium, nonradiating, and associated with eating. In the ED an EKG was completed which revealed sinus rhythm. A chest x-ray was also completed which was unremarkable. A CT of the abdomen with oral contrast was completed which revealed gallstones, and incidental liver lesion. Serum troponin was 0.025 patient was admitted to observation for further evaluation and treatment Hospital Course Hospital Course: (1) Atypical chest pain Is this a current diagnosis for this admission?: Yes Plan: Patient chest pain-free Continue ASA 81 mg p.o. daily Echocardiogram completed revealing grossly normal LV function with an LVEF estimated at 60 to 65%, mild diastolic dysfunction, trace to mild MR, trace PI Peak troponin 0.032 (2) Hypertension Qualifiers: Hypertension type: essential hypertension Qualified Code(s): I10 - Essential (primary) hypertension Is this a current diagnosis for this admission?: Yes Plan: Improved BP control after initiation of antihypertensive therapy Continue amlodipine 5 mg p.o. daily Continue hydralazine 10 mg IV every 6 PRN (3) Dyslipidemia Is this a current diagnosis for this admission?: Yes Plan: Lipid profile reviewed Continue simvastatin 40 mg p.o. daily at at bedtime (4) CKD (chronic kidney disease) stage 3, GFR 30-59 ml/min Is this a current diagnosis for this admission?: Yes Plan: Renal function at historic baseline Continue avoid nephrotoxins Monitor (5) Anemia Qualifiers: Anemia type: iron deficiency Iron deficiency anemia type: chronic blood loss Qualified Code(s): D50.0 - Iron deficiency anemia secondary to blood loss (chronic) Is this a current diagnosis for this admission?: Yes Plan: Anemia panel reviewed Stool negative for occult blood EGD completed with no bleeding identified Start ferrous sulfate 325 mg p.o. daily Monitor CBC (6) Abnormal TSH Is this a current diagnosis for this admission?: Yes Plan: TSH 6.80 Check T3/T4 in a.m. GI consultation was requested and the patient underwent EGD biopsy on 12/16/2019. No anastomotic ulcer was identified. The aferrent and efferent loops were normal. There was no ulcer in the pouch. Serial troponins remained negative and the patient had no further episodes of chest discomfort. Arrangements were made prior to discharge for outpatient follow-up with cardiology. Patient also had thyroid functions evaluated as part of his routine admission labs. His TSH elevated at 6.80. Subsequently T3 and T4 were obtained which were both WNL. This was discussed with the patient and he will follow-up with his PCP. The findings of his CT were also discussed with the patient and he will follow-up with his PCP as well. Physical Exam Vital Signs: Temp Pulse Resp BP Pulse Ox 97.7 F 90 16 121/61 95 12/17/19 12:01 12/17/19 17:15 12/17/19 17:15 12/17/19 12:01 12/17/19 17:15 Intake & Output 12/16/19 12/17/19 12/18/19 06:59 06:59 06:59 Intake Total 1016 2410 Output Total 1525 2000 Balance -509 410 Weight 108 kg 108.7 kg General appearance: PRESENT: no acute distress, cooperative, obese Head exam: PRESENT: atraumatic, normocephalic Eye exam: PRESENT: conjunctiva pink Mouth exam: PRESENT: moist, tongue midline Neck exam: ABSENT: JVD Respiratory exam: PRESENT: clear to auscultation joann, symmetrical, unlabored. ABSENT: accessory muscle use Cardiovascular exam: PRESENT: RRR, +S1, +S2 Pulses: PRESENT: normal carotid pulses, normal radial pulses GI/Abdominal exam: PRESENT: normal bowel sounds, soft, other - Obese. ABSENT: tenderness Rectal exam: PRESENT: deferred Extremities exam: ABSENT: calf tenderness Musculoskeletal exam: PRESENT: ambulatory Neurological exam: PRESENT: alert, awake, oriented to person, oriented to place, oriented to time, oriented to situation Psychiatric exam: ABSENT: agitated, anxious Skin exam: PRESENT: dry, normal color, warm Results Laboratory Results: WBC 4.5 10^3/uL (4.0-10.5) 12/17/19 05:23 RBC 3.55 10^6/uL (4.35-5.55) L 12/17/19 05:23 Hgb 8.4 g/dL (13.5-17.0) L 12/17/19 05:23 Hct 26.2 % (37.9-51.0) L 12/17/19 05:23 MCV 74 fl (80-97) L 12/17/19 05:23 MCH 23.5 pg (27.0-33.4) L 12/17/19 05:23 MCHC 31.9 g/dL (32.0-36.0) L 12/17/19 05:23 RDW 19.0 % (11.5-14.0) H 12/17/19 05:23 Plt Count 247 10^3/uL (150-450) 12/17/19 05:23 Lymph % (Auto) 23.9 % (13-45) 12/17/19 05:23 [place] % (Auto) 9.4 % (3-13) 12/17/19 05:23 Eos % (Auto) 3.1 % (0-6) 12/17/19 05:23 Baso % (Auto) 0.2 % (0-2) 12/17/19 05:23 Reticulocyte # 0.042 10^6/uL (0.028-0.122) 12/16/19 05:57 Absolute Neuts (auto) 2.9 10^3/uL (1.7-8.2) 12/17/19 05:23 Absolute Lymphs (auto) 1.1 10^3/uL (0.5-4.7) 12/17/19 05:23 Absolute Monos (auto) 0.4 10^3/uL (0.1-1.4) 12/17/19 05:23 Absolute Eos (auto) 0.1 10^3/uL (0.0-0.6) 12/17/19 05:23 Absolute Basos (auto) 0.0 10^3/uL (0.0-0.2) 12/17/19 05:23 Seg Neutrophils % 63.4 % (42-78) 12/17/19 05:23 Retic Count (auto) 1.25 % (0.66-2.85) 12/16/19 05:57 PT 12.5 SEC (11.4-15.4) 12/15/19 06:10 INR 0.94 12/15/19 06:10 Sodium 133.0 mmol/L (137-145) L 12/17/19 05:23 Potassium 4.4 mmol/L (3.6-5.0) 12/17/19 05:23 Chloride 101 mmol/L (98-107) 12/17/19 05:23 Carbon Dioxide 25 mmol/L (22-30) 12/17/19 05:23 Anion Gap 7 (5-19) 12/17/19 05:23 BUN 13 mg/dL (7-20) 12/17/19 05:23 Creatinine 1.36 mg/dL (0.52-1.25) H 12/17/19 05:23 Est GFR ( Amer) > 60 (>60) 12/17/19 05:23 Est GFR (MDRD) Non-Af 52 (>60) L 12/17/19 05:23 Glucose 147 mg/dL (75-110) H 12/17/19 05:23 POC Glucose 184 mg/dL (70-110) H 12/17/19 16:44 Hemoglobin A1c % 7.2 % (4.7-6.0) H 12/16/19 05:57 Calcium 8.6 mg/dL (8.4-10.2) 12/17/19 05:23 Iron 23.7 ug/dL (49-181) L 12/16/19 05:57 TIBC 385 ug/dL (250-450) 12/16/19 05:57 % Saturation 6 % 12/16/19 05:57 Ferritin 13.00 ng/mL (17.9-464.0) L 12/16/19 05:57 Total Bilirubin 0.4 mg/dL (0.2-1.3) 12/15/19 06:10 Direct Bilirubin 0.0 mg/dL (0.0-0.4) 12/15/19 06:10 Neonat Total Bilirubin Not Reportable 12/15/19 06:10 Neonat Direct Bilirubin Not Reportable 12/15/19 06:10 Neonat Indirect Bili Not Reportable 12/15/19 06:10 AST 58 U/L (17-59) 12/15/19 06:10 ALT 27 U/L (<50) 12/15/19 06:10 Alkaline Phosphatase 62 U/L (38-126) 12/15/19 06:10 Troponin I 0.032 ng/mL 12/16/19 00:21 NT-Pro-B Natriuret Pep 513 pg/mL (<125) H 12/15/19 06:10 Total Protein 7.8 g/dL (6.3-8.2) 12/15/19 06:10 Albumin 4.3 g/dL (3.5-5.0) 12/15/19 06:10 Triglycerides 76 mg/dL (<150) 12/16/19 05:57 Cholesterol 178.27 mg/dL (0-200) 12/16/19 05:57 LDL Cholesterol Direct 46 mg/dL (<100) 12/16/19 05:57 VLDL Cholesterol 15.0 mg/dL (10-31) 12/16/19 05:57 HDL Cholesterol 132 mg/dL (>40) 12/16/19 05:57 Lipase 466.7 U/L (23-300) H 12/15/19 06:10 Vitamin B12 299.0 pg/mL (239-931) 12/16/19 05:57 Folate 15.50 ng/mL (>2.76) 12/16/19 05:57 TSH 6.80 uIU/mL (0.47-4.68) H 12/16/19 05:57 Free T4 1.08 ng/dL (0.78-2.19) 12/17/19 05:23 Free T3 pg/mL 3.65 pg/mL (2.77-5.27) 12/17/19 05:23 Urine Color STRAW 12/15/19 06:10 Urine Appearance CLEAR 12/15/19 06:10 Urine pH 6.0 (5.0-9.0) 12/15/19 06:10 Ur Specific [place] 1.006 12/15/19 06:10 Urine Protein NEGATIVE mg/dL (NEGATIVE) 12/15/19 06:10 Urine Glucose (UA) 50 mg/dL (NEGATIVE) H 12/15/19 06:10 Urine Ketones NEGATIVE mg/dL (NEGATIVE) 12/15/19 06:10 Urine Blood NEGATIVE (NEGATIVE) 12/15/19 06:10 Urine Nitrite NEGATIVE (NEGATIVE) 12/15/19 06:10 Urine Bilirubin NEGATIVE (NEGATIVE) 12/15/19 06:10 Urine Urobilinogen NEGATIVE mg/dL (<2.0) 12/15/19 06:10 Ur Leukocyte Esterase NEGATIVE (NEGATIVE) 12/15/19 06:10 Urine WBC (Auto) 0 /HPF 12/15/19 06:10 Urine RBC (Auto) 0 /HPF 12/15/19 06:10 Urine Ascorbic Acid NEGATIVE (NEGATIVE) 12/15/19 06:10 Stool Occult Blood NEGATIVE (NEGATIVE) 12/15/19 19:25 SARS-CoV-2 (PCR) NEGATIVE (NEGATIVE) 12/15/19 21:45 12/15/19 12/15/19 12/15/19 06:10 06:10 09:45 Troponin I 0.035 0.025 NT-Pro-B Natriuret Pep 513 H 12/15/19 12/15/19 12/16/19 12:47 18:45 00:21 Troponin I 0.021 0.032 0.032 NT-Pro-B Natriuret Pep Impressions: Abdomen/Pelvis CT 12/15/19 00:00 IMPRESSION: 1. SMALL GALLSTONES. 2. CIRCUMSCRIBED LOW-ATTENUATION LESION IN THE LEFT LOBE OF THE LIVER. IF THE PATIENT HAS HAD PRIOR IMAGING ELSEWHERE, THEN COMPARISON WOULD BE HELPFUL TO DETERMINE IF THIS IS A STABLE FINDING. OTHERWISE, MAY NEED OUTPATIENT MRI OF THE LIVER. 3. PREVIOUS GASTRIC BYPASS. 4. NO OTHER SIGNIFICANT OR ACUTE FINDING IN THE ABDOMEN OR PELVIS ON CT SCAN WITH IV CONTRAST. Chest X-Ray 12/15/19 04:55 IMPRESSION: No acute cardiopulmonary process copyright 2011 [employer]- All Rights Reserved Plan Health Concerns: Patient was instructed to follow-up with his PCP regarding his abnormal thyroid function, the incidental finding of a liver lesion on the CT of the abdomen, as well as his chronic anemia and CKD. Plan of Treatment: Patient will be contacted by cardiology to schedule outpatient evaluation/stress test Goals: Patient's goals will be to follow-up as specified above Time Spent: Greater than 30 Minutes Stroke Is this a Stroke Patient?: No Acute Heart Failure - Is this a Heart Failure Patient?: No
== END 2019-12-17 18:30 | disposition home health service (06) | DRG 313 ==
LOC: ER 04:25 → EH 10:22 → INTOOBSV 10:22 → 4S 14:22 → OBSVTOIN 12-17 16:05
PROVIDERS: ADMIT Hospitalist; ATTEND Nurse Practitioner
PROC: 0DB58ZX Excision of Esophagus, Via Natural or Artificial Opening Endoscopic, Diagnostic (ICD-10-PCS; 2019-12-16)
PROC: B24BZZZ Ultrasonography of Heart with Aorta (ICD-10-PCS; principal; 2019-12-16 09:00)
DX: R07.89 Other chest pain (principal); E03.9 Hypothyroidism, unspecified; I12.9 Hypertensive chronic kidney disease with stage 1 through stage 4 chronic kidney disease, or unspecified chronic kidney disease; N18.3 Chronic kidney disease, stage 3 (moderate); E78.5 Hyperlipidemia, unspecified; E11.22 Type 2 diabetes mellitus with diabetic chronic kidney disease; K21.9 Gastro-esophageal reflux disease without esophagitis; M19.90 Unspecified osteoarthritis, unspecified site; F32.9 Major depressive disorder, single episode, unspecified; E66.9 Obesity, unspecified; Z98.84 Bariatric surgery status; D50.0 Iron deficiency anemia secondary to blood loss (chronic); Z79.4 Long term (current) use of insulin; Z85.828 Personal history of other malignant neoplasm of skin; Z87.891 Personal history of nicotine dependence; Z79.899 Other long term (current) drug therapy; Z03.818 Encounter for observation for suspected exposure to other biological agents ruled out
CPT/HCPCS: 36415; 43239; 71045; 731; 74177; 80048; 80053; 80061; 81001; 82272; 82607; 82728; 82746; 82962; 83036; 83540; 83550; 83690; 83880; 84439; 84443; 84481; 84484; 85025; 85027; 85045; 85610; 87635; 88305; 93005; 93010; 93306; 96374; 96375; 99285; C9113; C9803; G0378; J0360; J1644; J1815; J1940; J2270; J2405; J2704

== ENCOUNTER 2020-04-25 11:18 | Emergency (ER) | payer OTHER, MEDICARE ==
[2020-04-25 11:53] LABS: HEMATOCRIT 24.3 % (37.9-51.0); MEAN CORPUSCULAR HEMOGLOBIN 20.7 pg (27.0-33.4); MEAN CORPUSCULAR HGB CONC 30.5 g/dL (32.0-36.0); MEAN CORPUSCULAR VOLUME 68 fl (80-97); PLATELET COUNT 185 10^3/uL (150-450); RED BLOOD COUNT 3.58 10^6/uL (4.35-5.55); RED CELL DISTRIBUTION WIDTH 22.9 % (11.5-14.0); WHITE BLOOD COUNT 3.3 10^3/uL (4.0-10.5)
[2020-04-25 12:07] LABS: ALKALINE PHOSPHATASE 110 U/L (38-126); ANION GAP 10 (5-19); ASPARTATE AMINO TRANSFERASE 59 U/L (17-59); BILIRUBIN,DIRECT 0.4 mg/dL (0.0-0.4); BILIRUBIN,TOTAL 0.9 mg/dL (0.2-1.3); BLOOD UREA NITROGEN 14 mg/dL (7-20); CALCIUM 8.2 mg/dL (8.4-10.2); CARBON DIOXIDE 25 mmol/L (22-30); CHLORIDE 107 mmol/L (98-107); CREATINE KINASE 44 U/L (55-170); GLUCOSE 259 mg/dL (75-110); POTASSIUM 4.1 mmol/L (3.6-5.0); TOTAL PROTEIN 6.4 g/dL (6.3-8.2)
[2020-04-25 12:13] LABS: HEMOGLOBIN 7.4 g/dL (13.5-17.0)
[2020-04-25 12:17] LABS: ABSOLUTE LYMPHOCYTES# (MANUAL) 1.7 10^3/uL (0.5-4.7); ABSOLUTE MONOCYTES # (MANUAL) 0.3 10^3/uL (0.1-1.4); ANISOCYTOSIS 3+; BASOPHILS % (MANUAL) 0 % (0-2); EOSINOPHILS % (MANUAL) 8 % (0-6); LYMPHOCYTES % (MANUAL) 51 % (13-45); MONOCYTES % (MANUAL) 8 % (3-13); PLATELET COMMENT ADEQUATE; SEGMENTED NEUTROPHILS % (MAN) 33 % (42-78); TOTAL CELLS COUNTED 100
[2020-04-25 12:18] LABS: CREATINE KINASE MB 0.97 ng/mL (<4.55); OVALOCYTES 1+; POIKILOCYTOSIS 1+
[2020-04-25 12:19] LABS: HYPOCHROMASIA 2+
[2020-04-25 12:20] LABS: POLYCHROMASIA SLIGHT
[2020-04-25 12:22] LABS: TROPONIN I < 0.012 ng/mL
--- NOTE | 2020-04-25 14:08 | EKG REPORT ---
SEVERITY:- BORDERLINE ECG - SINUS RHYTHM BORDERLINE IVCD WITH LAD BORDERLINE PROLONGED QT INTERVAL : Confirmed by: Kwabena Davidson MD 25-Apr-2020 14:07:24
--- NOTE | 2020-04-25 15:01 | ER Document Report ---
ED General - General Chief Complaint: ETOH Abuse Stated Complaint: WEAKNESS Time Seen by Provider: 04/25/20 13:33 Primary Care Provider: VALENTINA PITTMAN [Primary Care Provider] - Follow up as needed Notes: 70-year-old man presenting to the emergency department with a complaint of excessive alcohol use, girlfriend called EMS and patient was transported to the emergency department here in the emergency department he is obviously intoxicated and complains of pain all over from his neuropathy. Patient has a history of diabetes mellitus and hypertension. He has not been compliant with his medications and admits to heavy alcohol use. Patient states he does not want help. He is requesting something for pain and does not want to be here. TRAVEL OUTSIDE OF THE [place] IN LAST 30 DAYS: No - Related Data Allergies/Adverse Reactions: codeine Adverse Reaction (Intermediate, Verified 08/04/19 13:20) Nausea Past Medical History - Social History Smoking Status: Former Smoker Frequency of alcohol use: Heavy Drug Abuse: None Family History: Reviewed & Not Pertinent Patient has homicidal ideation: No - Past Medical History Cardiac Medical History: Reports: Hx Hypercholesterolemia, Hx Hypertension Denies: Hx Congestive Heart Failure, Hx Coronary Artery Disease, Hx Heart Attack Pulmonary Medical History: Reports: Hx Pneumonia Denies: Hx Asthma, Hx Bronchitis, Hx COPD Neurological Medical History: Denies: Hx Cerebrovascular Accident, Hx Seizures Endocrine Medical History: Reports: Hx Diabetes Mellitus Type 2 - Insulin- dependent Malignancy Medical History: Reports Hx Skin Cancer GI Medical History: Reports: Hx Gastroesophageal Reflux Disease Musculoskeletal Medical History: Reports Hx Arthritis Psychiatric Medical History: Reports: Hx Depression Past Surgical History: Reports: Hx Appendectomy, Hx Gastric Bypass Surgery, Hx Orthopedic Surgery - neck, back, right leg - Immunizations Hx Diphtheria, Pertussis, Tetanus Vaccination: Yes Hx Pneumococcal Vaccination: 05/27/18 Review of Systems - Review of Systems Notes: Constitutional: See HPI HENT: Negative for sore throat. Eyes: Negative for visual changes. Cardiovascular: Negative for chest pain. Respiratory: Negative for shortness of breath. Gastrointestinal: Negative for abdominal pain, vomiting or diarrhea. Genitourinary: Negative for dysuria. Musculoskeletal: Negative for back pain. Skin: Negative for rash. Neurological: + Neuropathy pain 10 point ROS negative except as marked above and in HPI. Physical Exam - Vital signs Vitals: Temp 98.3 F 04/25/20 11:19 - Notes Notes: PHYSICAL EXAMINATION: Physical Exam: General: Overweight, intoxicated 70-year-old male no acute distress HEENT: NC/AT, pupils equal round and reactive to light, MM moist,nares clear, oropharynx clear, airway patent Neck: supple, no adenopathy, no masses. Good range of motion Lungs: clear, no wheezing, no rales no rhonchi CVS: Regular rate and rhythm no murmur gallop or rub Abdomen: Soft, active, nontender, no masses, no hepatosplenomegaly Ext: No edema, clubbing or cyanosis. Neuro: Alert and responsive, moving all 4 extremities on command, cranial nerves intact, no focal findings Skin: Intact no open lesions, no rash Course - Re-evaluation Re-evalutation: 04/25/20 20:49 I have question the patient regarding his desire to get help with his alcohol abuse, the patient states that he does not want help he came in to get something for pain for his neuropathy. He was given Toradol 15 mg IV with some mild relief. The patient slept in the emergency department for an extended period upon awakening he demanded that he be discharged or he was going to walk out. Junaid munoz was discharged with the understanding that he could return to the emergency department for help with his alcohol abuse if needed. - Vital Signs Vital signs: Temp Pulse Resp BP Pulse Ox 98.3 F 04/25/20 11:19 - Laboratory Result Diagrams: 04/25/20 11:35 04/25/20 11:35 Laboratory results interpreted by me: 04/25/20 04/25/20 04/25/20 11:35 11:35 13:15 WBC 3.3 L RBC 3.58 L Hgb 7.4 L Hct 24.3 L MCV 68 L MCH 20.7 L MCHC 30.5 L RDW 22.9 H Seg Neuts % (Manual) 33 L Lymphocytes % (Manual) 51 H Eosinophils % (Manual) 8 H Abs Neuts (Manual) 1.1 L Glucose 259 H Calcium 8.2 L ALT 229 H Creatine Kinase 44 L Albumin 3.0 L Urine Glucose (UA) 50 H Urine Urobilinogen 4.0 H 04/25/20 20:50 I have reviewed laboratory data and used this information for the treatment decisions regarding the patient. - EKG Interpretation by Me Rate: Normal - EKG interpreted by Dr. Alfredo: Normal sinus rhythm, rate 89, ND interval 148 ms, QT interval 404 ms,left axis deviation,borderline prolonged QT interval, no ischemic findings, compared to EKG dated 12/15/2019 there are no acute interval changes.Interpretation borderline normal EKG Discharge - Discharge Clinical Impression: Alcohol abuse, Poorly controlled diabetes mellitus, Poor compliance with med ication Alcohol intoxication Qualifiers: Complication of substance-induced condition: with unspecified complication Qualified Code(s): F10.929 - Alcohol use, unspecified with intoxication, unspecified Diabetic neuropathy Qualifiers: Diabetes mellitus type: type 2 Diabetes mellitus complication detail: with other neurological complication Qualified Code(s): E11.49 - Type 2 diabetes mellitus with other diabetic neurological complication Condition: Good Disposition: HOME, SELF-CARE Instructions: Acute Alcohol Intoxication ([facility]), Neuropathy ([facility]) Additional Instructions: You were seen in the emergency department today with call intoxication and poor compliance with your usual medications. Please take the medications as previously prescribed and stop the abuse of alcohol. Please contact your primary care doctor regarding estimates of your medication to control the neuropathy. HOME CARE INSTRUCTIONS & INFORMATION: Thank you for choosing us for your medical needs. We hope you're satisfied with the care you received. After you leave, you must properly care for your problem and, at the same time, observe its progress. Any condition can change. Some illnesses can change rapidly over hours or days. If your condition worsens, return to the Emergency Department or see your physician promptly. ABOUT YOUR X-RAYS AND EKG'S: If you had an EKG or X-rays taken, they have been read by the Emergency Physician. The X-rays and EKG's will also be read by a Radiologist or Manager Of Selection And Assessment within 24 hours. If discrepancies are noted, you will be notified by telephone. Please be certain the ED has a correct telephone number & address where you can be reached. Also, realize that some fractures or abnormalities do not show up on initial X-rays. If your symptoms continue, see your physician. ABOUT YOUR LABORATORY TEST: If you had laboratory tests, the results have been reviewed by the Emergency Physician. Some test results (for example cultures) may not be available for several days. You will be contacted if any test result shows you need additional treatment. Please be certain the ED has a correct telephone number and address where you can be reached. ABOUT YOUR MEDICATIONS: You will receive instructions on how to take your medicine on the prescription label you receive. Additional information may be provided by the Pharmacy. If you have questions afterwards, call the ED for clarification or further instructions. Some prescribed medications may cause drowsiness. Do not perform tasks such as driving a car or operating machinery without consulting your Pharmacist. If you feel you need a refill of pain medication, your condition will need re-evaluation. Please do not call for a refill of any medication. ABOUT YOUR SIGNATURE: Signature of this document acknowledges to followin. Understanding that you received emergency treatment and that you may be released before al medical problems are known or treated. Please be certain the ED has a correct phone number & address where you can be reached. 2. Acknowledgement that you will arrange for follow-up care as recommended. 3. Authorization for the Emergency Physician to provide information to your follow-up Physician in order to maximize your care. AT ANY TIME, IF YOUR SYMPTOMS CHANGE SIGNIFICANTLY OR WORSEN OR YOU DEVELOP NEW SYMPTOMS, RETURN TO THE EMERGENCY DEPARTMENT IMMEDIATELY FOR RE-EVALUATION. OUR GOAL IS TO PROVIDE EXCELLENT MEDICAL CARE! WE HOPE THAT WE HAVE MET YOUR EXPECTATIONS DURING YOUR EMERGENCY DEPARTMENT VISIT AND THAT YOU FEEL YOU HAVE RECEIVED EXCELLENT CARE! Referrals: [facility] [Primary Care Provider] - Follow up as needed
[2020-04-25] MEDS ORDERED: KETOROLAC TROMETHAMINE INJ/PF 30 MG/1 ML SDV IV ONE (15:04)
[2020-04-25 15:21] LABS: APPEARANCE,URINE CLEAR; BILIRUBIN,URINE NEGATIVE (NEGATIVE); COLOR,URINE YELLOW; GLUCOSE, URINE 50 mg/dL (NEGATIVE); KETONES,URINE NEGATIVE (NEGATIVE); LEUKOCYTE ESTERASE,URINE NEGATIVE (NEGATIVE); NITRITE,URINE NEGATIVE (NEGATIVE); PROTEIN,URINE NEGATIVE (NEGATIVE); URINE SPECIFIC GRAVITY 1.012
[2020-04-25 15:37] LABS: URINE AMPHETAMINES SCREEN NEGATIVE; URINE BARBITURATES SCREEN NEGATIVE; URINE BENZODIAZEPINES SCREEN NEGATIVE; URINE COCAINE SCREEN NEGATIVE; URINE MARIJUANA (THC) SCREEN NEGATIVE; URINE METHADONE SCREEN NEGATIVE; URINE PHENCYCLIDINE SCREEN NEGATIVE
== END 2020-04-25 19:02 | disposition home or self-care (01) ==
LOC: ER 11:18
DX: F10.129 Alcohol abuse with intoxication, unspecified (principal); E11.40 Type 2 diabetes mellitus with diabetic neuropathy, unspecified; E11.65 Type 2 diabetes mellitus with hyperglycemia; E66.3 Overweight; I10 Essential (primary) hypertension; Z91.14 Patient's other noncompliance with medication regimen; Z87.891 Personal history of nicotine dependence
CPT/HCPCS: 93005; 99284; 96374; 36415; 82553; 80307 ×2; 82550; 85025; 80053; 81001; 84484; 93010; J1885

== ENCOUNTER 2020-04-30 09:53 | Emergency (ER) | payer OTHER, MEDICARE ==
--- NOTE | 2020-04-30 10:31 | ER Document Report ---
ED General - General Chief Complaint: Pain All Over Stated Complaint: BODY ACHES Time Seen by Provider: 04/30/20 10:08 Primary Care Provider: VALENTINA PITTMAN [Primary Care Provider] - Follow up as needed Notes: HPI: 70-year-old male who presents with EMS from home after the patient states that he has "pain all over" as well as not taking his insulin. Patient states that he has a history of peripheral neuropathy secondary to diabetes and states that he has not seen a [facility] management physician [facility]". Patient denies any specific pain such as headache, neck pain, chest pain, abdominal pain, and denies any fevers, vomiting, or diarrhea. Supposedly the patient according to EMS lives in a very disheveled area/household secondary to his girlfriend who normally takes care of him being hospitalized recently. They are concerned about the patient's safety. ROS: See HPI All other review of systems reviewed and otherwise negative Reviewed vital signs and nursing note as charted by RN. PHYSICAL EXAM: CONSTITUTIONAL: Alert and oriented; disheveled with very dirty clothing HEAD: Normocephalic; atraumatic EYES: PERRL; Conjunctivae clear, sclerae non-icteric ENT: Normal nose; no rhinorrhea; moist mucous membranes; pharynx without lesions noted NECK: Supple without meningismus; non-tender; no cervical lymphadenopathy, no masses CARD: Regular rate and rhythm; no murmurs; symmetric distal pulses RESP: Normal chest excursion without splinting or tachypnea; breath sounds clear and equal bilaterally; no wheezes, no rhonchi, no rales ABD/GI: Normal bowel sounds; elevated BMI; soft, non-tender; no palpable organomegaly or masses BACK: The back appears normal and is non-tender to palpation along the entire spine with an old surgical scar consistent with history EXT: Normal ROM in all joints; non-tender to palpation; 1+ lower extremity edema which the patient states is chronic SKIN: No acute lesions noted NEURO: CN 2-12 intact; 5/5 bilateral upper and lower extremity strength with sensation intact to light touch PSYCH: The patient's mood and manner are appropriate. Grooming and personal hygiene are appropriate. TRAVEL OUTSIDE OF THE [place] IN LAST 30 DAYS: No - Related Data Allergies/Adverse Reactions: codeine Adverse Reaction (Intermediate, Verified 08/04/19 13:20) Nausea Past Medical History - Social History Smoking Status: Unknown if Ever Smoked Family History: Reviewed & Not Pertinent - Past Medical History Cardiac Medical History: Reports: Hx Hypercholesterolemia, Hx Hypertension Denies: Hx Congestive Heart Failure, Hx Coronary Artery Disease, Hx Heart Attack Pulmonary Medical History: Reports: Hx Pneumonia Denies: Hx Asthma, Hx Bronchitis, Hx COPD Neurological Medical History: Denies: Hx Cerebrovascular Accident, Hx Seizures Endocrine Medical History: Reports: Hx Diabetes Mellitus Type 2 - Insulin- dependent Malignancy Medical History: Reports Hx Skin Cancer GI Medical History: Reports: Hx Gastroesophageal Reflux Disease Musculoskeletal Medical History: Reports Hx Arthritis Psychiatric Medical History: Reports: Hx Depression Past Surgical History: Reports: Hx Appendectomy, Hx Gastric Bypass Surgery, Hx Orthopedic Surgery - neck, back, right leg - Immunizations Hx Diphtheria, Pertussis, Tetanus Vaccination: Yes Hx Pneumococcal Vaccination: 05/27/18 Physical Exam - Vital signs Vitals: Resp BP Pulse Ox 21 H 144/100 H 97 04/30/20 10:25 04/30/20 10:25 04/30/20 10:25 Course - Re-evaluation Re-evalutation: 04/30/20 10:31 Given the above history and physical examination, we will obtain basic labs including a glucose level, provide a short course of pain medications, attempt to consult case management/social work for possible outpatient discharge planning, and reassess. I do not see any indication or signs or symptoms of an intra-articular infection, signs of stroke, or some story for ACS, and his Accu- Chek was in the 300s. 04/30/20 10:55 EKG shows heart rate of 106, sinus tachycardia, left anterior fascicular block, poor R wave progression, no obvious ST elevation or depression. Previous EKG April 25, 2020 shows no obvious appreciable change. 04/30/20 11:13 Reviewing the patient's chart, the patient was here around 6 days ago with alcohol intoxication and demanding to leave the emergency department after becoming more sober. History of some chronic anemia. 04/30/20 11:57 Labs as recorded. Patient denies any pain at this time. TSH is slightly elevated. Discharge planning/social work has been consulted. Labs as recorded. Patient has deferred rectal examination initially. Patient does have a history of anemia. Patient's MCV is lower than normal. Patient denies any black or bloody stools. I was able to find old chart review showing some anemia with an endoscopy in November 2019. It did not show any obvious ulcers. Patient states he followed up with a GI specialist with a repeat endoscopy that did show an anastomotic lesion/also. Patient has a history of gastric bypass at [facility]. Patient states he has required blood transfusions in the past. Given the story as above tried to discuss with the patient again about obtaining a rectal exam. Patient agreed. Rectal exam showed no gross blood but a strong Hemoccult positive stool. I have called her operating we do not have GI availability here. Given the active bleeding with a hemoglobin around 7 with some deconditioning of the patient, I will obtain consent for blood. Patient understands the risks and benefits and does agree to receiving blood. We most likely have to transfer the patient given the patient's condition and need for endoscopy and blood products. We do not have GI here for the next 3 days. 04/30/20 19:46 Patient's vital signs are stable. Transport is on its way. - Vital Signs Vital signs: Temp Pulse Resp BP Pulse Ox 97.9 F 108 H 15 150/72 H 100 04/30/20 19:29 04/30/20 19:29 04/30/20 19:29 04/30/20 19:29 04/30/20 19:29 - Laboratory Result Diagrams: 04/30/20 10:28 04/30/20 10:28 Laboratory results interpreted by me: 04/30/20 04/30/20 04/30/20 10:28 10:28 10:28 RBC 3.46 L Hgb 7.2 L Hct 23.2 L MCV 67 L MCH 20.8 L MCHC 31.0 L RDW 22.7 H Monocytes % (Manual) 2 L Chloride 108 H Glucose 243 H Calcium 8.1 L Direct Bilirubin 0.6 H ALT 79 H Albumin 3.1 L TSH 5.08 H Crossmatch 04/30/20 17:08 RBC Hgb Hct MCV MCH MCHC RDW Monocytes % (Manual) Chloride Glucose Calcium Direct Bilirubin ALT Albumin TSH Crossmatch See Detail Critical Care Note - Critical Care Note Total time excluding time spent on procedures (mins): 32 Discharge - Discharge Clinical Impression: Total body pain, Acute blood loss anemia, Rectal bleeding Condition: Fair Disposition: [facility] Additional Instructions: Please return immediately for any lightheadedness, dizziness, increased pain, chest pain, shortness of breath, or any other acute problems. Return at any time that you would like for further assessment and treatment. [facility]errals[facility] [[facility] - Follow up as needed
[2020-04-30 10:40] LABS: HEMATOCRIT 23.2 % (37.9-51.0); MEAN CORPUSCULAR HEMOGLOBIN 20.8 pg (27.0-33.4); MEAN CORPUSCULAR VOLUME 67 fl (80-97); PLATELET COUNT 186 10^3/uL (150-450); RED BLOOD COUNT 3.46 10^6/uL (4.35-5.55); RED CELL DISTRIBUTION WIDTH 22.7 % (11.5-14.0); WHITE BLOOD COUNT 5.3 10^3/uL (4.0-10.5)
[2020-04-30 10:45] LABS: INTERNATIONAL RATION (INR) 1.08; PROTHROMBIN TIME 14.2 SEC (11.4-15.4)
[2020-04-30 11:00] LABS: ALBUMIN 3.1 g/dL (3.5-5.0); ALKALINE PHOSPHATASE 99 U/L (38-126); ANION GAP 9 (5-19); ASPARTATE AMINO TRANSFERASE 39 U/L (17-59); BILIRUBIN,DIRECT 0.6 mg/dL (0.0-0.4); BILIRUBIN,TOTAL 1.1 mg/dL (0.2-1.3); BLOOD UREA NITROGEN 12 mg/dL (7-20); CALCIUM 8.1 mg/dL (8.4-10.2); CARBON DIOXIDE 22 mmol/L (22-30); CHLORIDE 108 mmol/L (98-107); GLUCOSE 243 mg/dL (75-110); POTASSIUM 4.4 mmol/L (3.6-5.0); TOTAL PROTEIN 6.3 g/dL (6.3-8.2)
[2020-04-30 11:11] LABS: HEMOGLOBIN 7.2 g/dL (13.5-17.0)
[2020-04-30] MEDS ORDERED: OXYCODONE-ACETAMINOPHEN 5-325 MG TABLET PO ONE (11:11)
[2020-04-30 11:14] LABS: ABSOLUTE LYMPHOCYTES# (MANUAL) 1.9 10^3/uL (0.5-4.7); ABSOLUTE MONOCYTES # (MANUAL) 0.1 10^3/uL (0.1-1.4); BASOPHILS % (MANUAL) 1 % (0-2); EOSINOPHILS % (MANUAL) 0 % (0-6); LYMPHOCYTES % (MANUAL) 36 % (13-45); MONOCYTES % (MANUAL) 2 % (3-13); SEGMENTED NEUTROPHILS % (MAN) 61 % (42-78); TOTAL CELLS COUNTED 100
[2020-04-30 11:15] LABS: ANISOCYTOSIS 3+; HYPOCHROMASIA 2+; OVALOCYTES SLIGHT; PLATELET COMMENT ADEQUATE; POLYCHROMASIA 1+; TEAR DROP CELLS SLIGHT
[2020-04-30] MEDS ORDERED: NORMAL SALINE 250 ML IV PRN ×2 (17:04)
[2020-04-30] MEDS ORDERED: FUROSEMIDE 40 MG TABLET PO PRN (17:04)
[2020-04-30] MEDS ORDERED: PANTOPRAZOLE SODIUM 40 MG VIAL IV ONE ×2 (17:43→19:04)
[2020-04-30] MEDS ORDERED: NORMAL SALINE 100 ML with PANTOPRAZOLE SODIUM 80 MG IV PRN ×2 (17:47)
[2020-04-30] MEDS ORDERED: MORPHINE SULFATE 10 MG/ML INJ IV ONE (18:15)
[2020-04-30] MEDS ORDERED: LISINOPRIL 10 MG TABLET PO ONE (18:32)
[2020-04-30] MEDS ORDERED: GABAPENTIN 400 MG CAPSULE PO ONE (18:33)
--- NOTE | 2020-04-30 18:53 | EKG REPORT ---
SEVERITY:- ABNORMAL ECG - SINUS TACHYCARDIA VENTRICULAR PREMATURE COMPLEX LEFT ANTERIOR FASCICULAR BLOCK BORDERLINE R WAVE PROGRESSION, ANTERIOR LEADS BORDERLINE PROLONGED QT INTERVAL : Confirmed by: Kwabena Davidson MD 30-Apr-2020 18:52:07
[2020-04-30] MEDS ORDERED: ONDANSETRON HCL INJ/PF 4 MG/2 ML SDV IV ONE (18:54)
[2020-04-30 20:09] VITALS: BP 148/87
== END 2020-04-30 20:19 | disposition short-term general hospital (02) ==
LOC: ER 09:53
DX: D62 Acute posthemorrhagic anemia (principal); E11.42 Type 2 diabetes mellitus with diabetic polyneuropathy; K62.5 Hemorrhage of anus and rectum; R60.0 Localized edema; I10 Essential (primary) hypertension; R00.0 Tachycardia, unspecified; I44.4 Left anterior fascicular block; R79.89 Other specified abnormal findings of blood chemistry; Z98.84 Bariatric surgery status
CPT/HCPCS: 93005; 99285; 96375; 96365; 86900; 86901; 36415; 36430; 86850; 84443; 85025; 85610; 80053; 84484; 86920; 93010; P9016; J2270; C9113; J2405; J7050

== ENCOUNTER 2020-05-15 12:02 | Emergency (ER) | payer MEDICARE, OTHER ==
[2020-05-15] MEDS ORDERED: NORMAL SALINE 1000 ML 1,000 ML IV ONE (13:22)
--- NOTE | 2020-05-15 14:04 | RADIOLOGY REPORT (SQ) ---
EXAM DESCRIPTION: CHEST SINGLE VIEW IMAGES COMPLETED DATE/TIME: 05/15/2020 10:39 am REASON FOR STUDY: cough COMPARISON: 12/15/2019 EXAM PARAMETERS: NUMBER OF VIEWS: One view. TECHNIQUE: Single frontal radiographic view of the chest acquired. RADIATION DOSE: NA LIMITATIONS: Patient is minimally rotated. External leads partially obscure underlying structures. FINDINGS: LUNGS AND PLEURA: New right basilar and retrocardiac opacities could reflect infection. N o visualized pleural effusion or pneumothorax. Lung apices are partially obscured due to patient pos itioning. MEDIASTINUM AND HILAR STRUCTURES: No masses. Contour normal. HEART AND VASCULAR STRUCTURES: Prominence of the cardiac silhouette may be technical. No pulmonary v ascular congestion. BONES: Chronic appearing right rib fractures. Cervical spine fixation hardware. HARDWARE: None in the chest. OTHER: No other significant finding. IMPRESSION: New bibasilar opacities which are nonspecific, but may be infectious in etiology. TECHNICAL DOCUMENTATION: JOB ID: [id number] 2010 [employer]- All Rights Reserved Reading location - IP/workstation name: [email or web address]
[2020-05-15 14:29] LABS: ABSOLUTE BASOPHILS # (AUTO) 0.1 10^3/uL (0.0-0.2); ABSOLUTE EOSINOPHILS # (AUTO) 0.2 10^3/uL (0.0-0.6); ABSOLUTE LYMPHOCYTES (AUTO) 2.4 10^3/uL (0.5-4.7); ABSOLUTE MONOCYTES (AUTO) 0.4 10^3/uL (0.1-1.4); ABSOLUTE NEUT (AUTO) 2.5 10^3/uL (1.7-8.2); EOSINOPHILS % (AUTO) 3.5 % (0-6); HEMATOCRIT 31.6 % (37.9-51.0); LYMPHOCYTES % (AUTO) 42.2 % (13-45); MEAN CORPUSCULAR HEMOGLOBIN 24.7 pg (27.0-33.4); MEAN CORPUSCULAR HGB CONC 31.5 g/dL (32.0-36.0); MONOCYTES % (AUTO) 6.9 % (3-13); PLATELET COUNT 273 10^3/uL (150-450); RED BLOOD COUNT 4.03 10^6/uL (4.35-5.55); RED CELL DISTRIBUTION WIDTH 30.6 % (11.5-14.0); SEGMENTED NEUTROPHILS % (AUTO) 45.4 % (42-78); TOTAL CELLS COUNTED % (AUTO) 100 %; WHITE BLOOD COUNT 5.6 10^3/uL (4.0-10.5)
[2020-05-15 14:32] LABS: APPEARANCE,URINE CLEAR; BILIRUBIN,URINE NEGATIVE (NEGATIVE); COLOR,URINE STRAW; GLUCOSE, URINE NEGATIVE (NEGATIVE); KETONES,URINE NEGATIVE (NEGATIVE); LEUKOCYTE ESTERASE,URINE NEGATIVE (NEGATIVE); NITRITE,URINE NEGATIVE (NEGATIVE); PROTEIN,URINE NEGATIVE (NEGATIVE); URINE SPECIFIC GRAVITY 1.003; UROBILINOGEN,URINE NEGATIVE mg/dL (<2.0)
[2020-05-15 14:47] LABS: ALBUMIN 3.2 g/dL (3.5-5.0); ALCOHOL 295 mg/dL (NONE DETECTED); ALKALINE PHOSPHATASE 100 U/L (38-126); ANION GAP 11 (5-19); ASPARTATE AMINO TRANSFERASE 52 U/L (17-59); BILIRUBIN,DIRECT 0.3 mg/dL (0.0-0.4); BILIRUBIN,TOTAL 0.6 mg/dL (0.2-1.3); BLOOD UREA NITROGEN 2 mg/dL (7-20); CALCIUM 8.5 mg/dL (8.4-10.2); CARBON DIOXIDE 26 mmol/L (22-30); CHLORIDE 107 mmol/L (98-107); GLUCOSE 147 mg/dL (75-110); POTASSIUM 3.6 mmol/L (3.6-5.0); TOTAL PROTEIN 6.8 g/dL (6.3-8.2)
[2020-05-15 14:55] LABS: URINE AMPHETAMINES SCREEN NEGATIVE; URINE BARBITURATES SCREEN NEGATIVE; URINE BENZODIAZEPINES SCREEN NEGATIVE; URINE COCAINE SCREEN NEGATIVE; URINE MARIJUANA (THC) SCREEN NEGATIVE; URINE METHADONE SCREEN NEGATIVE; URINE PHENCYCLIDINE SCREEN NEGATIVE
[2020-05-15 15:26] LABS: HYPOCHROMASIA SLIGHT; MEAN CORPUSCULAR VOLUME 78 fl (80-97)
[2020-05-15 15:27] LABS: ANISOCYTOSIS 4+; OVALOCYTES 1+; PLATELET COMMENT ADEQUATE; TEAR DROP CELLS SLIGHT
[2020-05-15] MEDS ORDERED: AZITHROMYCIN INJ 500 MG VIAL IV ONE (15:50)
[2020-05-15] MEDS ORDERED: CEFTRIAXONE 1 GM/D5W RTU 1 GM/50 ML RTUPB IV ONE (15:50)
--- NOTE | 2020-05-15 15:51 | ER Document Report ---
ED General - General TRAVEL OUTSIDE OF THE [place] IN LAST 30 DAYS: No <EFRAÍN CANALES - Last Filed: 05/15/20 15:57> - General Information source: Patient <DOMO CASTILLO - Last Filed: 05/15/20 23:45> <ALEX DANG GLORIA - Last Filed: 05/16/20 01:57> - General Chief Complaint: ETOH Abuse Stated Complaint: ALTERED MENTAL STATUS Time Seen by Provider: 05/15/20 12:56 [facility] [[facility]] - Follow up as needed - [facility] Notes: Chief complaint alcohol abuse History of present illness: 70-year-old male has been followed by community paramedics because of general debility, poor social situation and chronic alcoh olism now transported here by EMS after they found him in state of total intoxication sitting in a lounge chair in his trailer covered with stool with trash scattered all about an empty alcohol containers. Patient is quite intoxicated at this time unable to get much additional history from him. I reviewed records and found that he was previously here on the fifth of this month with some lower GI bleeding. He was hemodynamically stable had a hemoglobin about 7 g. We did not have any GI construction technician here at that time. He was transferred to [facility]. I do not currently have access to those records. (EFRAÍN CANALES) - Related Data Allergies/Adverse Reactions: codeine Adverse Reaction (Intermediate, Verified 08/04/19 13:20) Nausea Past Medical History - General Information source: Patient, [facility] Records - Social History Smoking Status: Never Smoker Chew tobacco use (# tins/day): No Frequency of alcohol use: Heavy Drug Abuse: None Family History: Reviewed & Not Pertinent - Past Medical History Cardiac Medical History: Reports: Hx Hypercholesterolemia, Hx Hypertension Denies: Hx Congestive Heart Failure, Hx Coronary Artery Disease, Hx Heart Attack Pulmonary Medical History: Reports: Hx Pneumonia Denies: Hx Asthma, Hx Bronchitis, Hx COPD Neurological Medical History: Denies: Hx Cerebrovascular Accident, Hx Seizures Endocrine Medical History: Reports: Hx Diabetes Mellitus Type 2 - Insulin- dependent Malignancy Medical History: Reports Hx Skin Cancer GI Medical History: Reports: Hx Gastroesophageal Reflux Disease Musculoskeletal Medical History: Reports Hx Arthritis Psychiatric Medical History: Reports: Hx Depression Past Surgical History: Reports: Hx Appendectomy, Hx Gastric Bypass Surgery, Hx Orthopedic Surgery - neck, back, right leg - Immunizations Hx Diphtheria, Pertussis, Tetanus Vaccination: Yes Hx Pneumococcal Vaccination: 05/27/18 <EFRAÍN CANALES - Last Filed: 05/15/20 15:57> Review of Systems - Review of Systems -: Yes ROS unobtainable due to patient's medical condition <EFRAÍN CANALES - Last Filed: 05/15/20 15:57> Physical Exam <EFRAÍN CANALES - Last Filed: 05/15/20 15:57> - Vital signs Vitals: Pulse Ox 98 05/15/20 12:14 - Notes Notes: GENERAL: Elderly man covered with stool with strong odor of alcohol. He is relatively uncooperative. SKIN: Good turgor no rashes. HEAD: Normocephalic atraumatic. EYES: PERRLA. EOMI. Conjunctivae and sclerae clear. EARS: CANALS AND TMS CLEAR. NOSE: CLEAR. MOUTH: Moist mucosa. Good dentition. No stridor or edema. No drooling. NECK: Supple. No masses or thyromegaly. No adenopathy. Carotids 2+ without bruits. No JVD. BACK: Symmetrical without tenderness. CHEST: Respirations unlabored. Few scattered rhonchi bilaterally. HEART: Regular rhythm. No murmur gallop or rub. ABDOMEN: Multiple surgical scars present. Soft nontender without masses, organomegaly or rebound. Bowel sounds normally active. No bruits. GENITALIA: Deferred. EXTREMITIES: Trace bilateral pretibial edema. No calf tenderness. Cap refill less than 1.5 seconds. Dorsalis pedis and posterior tibial pulses 3+ and symmetrical. NEUROLOGICAL: Patient is quite intoxicated. Eyes are open. He will chemistry research assistant fingers on command. He is oriented to person and place but not to time and his conversation is rambling. He is moving all 4 extremities symmetrically. PSYCHIATRIC: Appropriate affect. (EFRAÍN CANALES) Course - Laboratory Results Result Diagrams: 05/15/20 14:00 05/15/20 14:00 Critical Laboratory Results Reviewed: Yes - Eladia Attending or Supervising Physician who Reviewed Labs: EFRAÍN CANALES - Radiology Results Critical Radiology Results Reviewed: Yes Attending or Supervising Physician who Reviewed Radiology: EFRAÍN CANALES <EFRAÍN CANALES - Last Filed: 05/15/20 15:57> - Laboratory Results Result Diagrams: 05/15/20 14:00 05/15/20 14:00 <DOMO CASTILLO - Last Filed: 05/15/20 23:45> - Laboratory Results Result Diagrams: 05/15/20 14:00 05/15/20 14:00 <ALEX DANG IV - Last Filed: 05/16/20 01:57> - Re-evaluation Re-evalutation: 05/15/20 23:45 Patient awoke earlier this evening stating he will to go home, that we cannot hold him against as will. I reiterated to the patient the circumstances in which he was brought to the emergency department and that his girlfriend was also here in the hospital and seen. After several minutes of discussion, he appeared calm down and was given a sandwich and something to drink. I ordered a repeat alcohol level in a IV dose of Ativan for possible withdrawal symptoms. Presently he is no longer insisting on leaving. Given the history of drinking every day the risk for withdrawal and alcohol withdrawal complex is significant. 05/15/20 23:51 Presently the patient is a social hold and someone for the social media editor to get clarity with regards to patient safety for the patient. (DOMO CASTILLO) 05/16/20 01:53 Patient states that he wants to leave. Patient is refusing social work therapist help that he has been offered. This MD went and spoke to the patient directly. Patient clinically appears sober. He knows his full name. He knows where he is, he knows what year it is. The risks of leaving AMA given his heavy alcohol use were discussed with the patient and include but are not limited to permanent disability and/or . Patient states he understands risks as they were discussed with him. Patient is leaving AMA. (ALEX DANG IV) - Vital Signs Vital signs: Temp Pulse Resp BP Pulse Ox 98.1 F 20 169/95 H 99 05/15/20 21:02 05/15/20 21:02 05/15/20 21:02 05/15/20 21:02 - Laboratory Results Laboratory Results Interpreted: 05/15/20 05/15/20 14:00 14:00 RBC 4.03 L Hgb 10.0 L Hct 31.6 L MCV 78 L D MCH 24.7 L MCHC 31.5 L RDW 30.6 H BUN 2 L Glucose 147 H Albumin 3.2 L - Radiology Results Radiology Results Interpreted: 05/15/20 15:58 Chest X-Ray 05/15/20 13:22 IMPRESSION: New bibasilar opacities which are nonspecific, but may be infectious in etiology. (EFRAÍN CANALES) - EKG Interpretation by Me Additional EKG results interpreted by me: 05/15/20 15:58 Twelve-lead EKG reviewed by me contemporaneously: 1312 hrs. Indication for study: Altered mental status Rhythm: Normal sinus with single PVC Rate: 92 Intervals: Borderline QT prolongation with QTC 481 ms QRS axis: -[address]/T wave changes: Nonspecific Comparison with prior tracing: No significant change compared with prior study 04/30/2020 Interpretation: Borderline QT prolongation (EFRAÍN CANALES) Discharge <EFRAÍN CANALES - Last Filed: 05/15/20 15:57> <DOMO CASTILLO - Last Filed: 05/15/20 23:45> <ALEX DANG IV - Last Filed: 05/16/20 01:57> - Discharge Clinical Impression: Chronic alcoholism, Pneumonia Alcohol intoxication Qualifiers: Complication of substance-induced condition: uncomplicated Qualified Code(s): F10.920 - Alcohol use, unspecified with intoxication, uncomplicated Disposition: AGAINST MEDICAL ADVICE Additional Instructions: Return to the emergency department anytime by calling 911 if you decide to seek further care. [facility]errals: [facility] [[facility]] - Follow up as needed
--- NOTE | 2020-05-15 20:41 | EKG REPORT ---
SEVERITY:- ABNORMAL ECG - SINUS RHYTHM VENTRICULAR PREMATURE COMPLEX LAD, CONSIDER LEFT ANTERIOR FASCICULAR BLOCK BORDERLINE T ABNORMALITIES, ANTERIOR LEADS BORDERLINE PROLONGED QT INTERVAL : Confirmed by: Ernestina Cutler MD 15-May-2020 20:40:23
[2020-05-15] MEDS ORDERED: LORAZEPAM INJ 2 MG/1 ML VIAL IV ONE (22:20)
[2020-05-15] MEDS ORDERED: GABAPENTIN 100 MG CAPSULE PO SCH (23:00)
[2020-05-16 02:11] VITALS: BP 160/80
== END 2020-05-16 02:05 | disposition left against medical advice (07) ==
LOC: ER 12:02
DX: F10.229 Alcohol dependence with intoxication, unspecified (principal); J18.9 Pneumonia, unspecified organism; R60.0 Localized edema; I10 Essential (primary) hypertension; E11.9 Type 2 diabetes mellitus without complications; Z20.828 Contact with and (suspected) exposure to other viral communicable diseases
CPT/HCPCS: 93005; 99285; 96361; 96375; 96365; 96367; 36415; 87040; 80307 ×2; 83735; 85025; 0241U ×4; 80053; 81001; 71045; 93010; J2060; J7030; A9270; J0456; J0696; C9803; 87150